=== PATIENT | female | born 1960 | race Caucasian/White ===

== ENCOUNTER 2016-11-04 12:40 | Emergency (ER) | payer OTHER ==
--- NOTE | 2016-11-04 13:45 | ED CLINICAL REPORT ---
Clinical Report - Physicians/Mid Levels [facility] [address] [place] [address] 11/04/2016 12:42 Patient: TED LEE Time Seen: 13:12; initial patient contact, initial documentation, patient care assumed. Arrived- By private vehicle. Historian- patient. HISTORY OF PRESENT ILLNESS Chief Complaint: ABDOMINAL PAIN. At its maximum, severity described as moderate. When seen in the E.D., it was gone. Modifying factors- worsened by food. Not relieved by anything. It is described as "pain" and it is described as located in the epigastric area and in the upper abdomen. This started last night. The patient has had nausea (- gone now). No loss of appetite, vomiting or diarrhea. (says she went to night buffet, ate too much, and then belly started hurting, gone now and feels normal). No recent travel. Similar symptoms previously: None. Recent medical care: Not recently seen/assessed. REVIEW OF SYSTEMS No constipation, black stools, hematemesis, difficulty with urination or pain with urination. No urinary frequency, bloody stools or fever. All systems otherwise negative, except as recorded above. PAST HISTORY See nurses notes. PROBLEMS: Gastritis. Breast Cancer. Mental Illness. Athlete's Foot. Skin Rash. Abdominal Pain. Costochondritis. Immunizations. LNMP - Last Normal Menstrual Period. Diabetes Mellitus. Dyslexia. Hypertension. --12:53 Linda Frias RLuis Carlos. ADDITIONAL SURGERIES: Mastectomy. --12:53 Linda Frias RLuis Carlos. SOCIAL HISTORY Never smoker. No alcohol use or drug use. No recent travel. Is a local resident. FAMILY HISTORY Negative. Cancer in first-degree relative (mother). ADDITIONAL NOTES The nursing notes have been reviewed with agreement regarding the chief complaint, HPI, ROS, PMH and patient medications and allergies. PHYSICAL EXAM Vital Signs: 11/04/2016 12:51 BP: 164/100. HR: 89. RR: 18. O2 saturation: 100%. Temp: 98.1 F. Have been reviewed as abnormal and appear to be correct. Hypertensive. Heart rate normal. Respiratory rate normal. Temperature normal. Oxygen saturation normal. Appearance: Alert. Oriented X3. No acute distress. Eyes: Pupils equal, round and reactive to light. Eyes normal inspection. Neck: Normal inspection. Neck supple. CVS: Normal heart rate and rhythm. Heart sounds normal. Pulses normal. Respiratory: No respiratory distress. Breath sounds normal. Chest nontender. Abdomen: Soft and nontender. Bowel sounds normal. No organomegaly. No mass. Back: Normal inspection. Skin: Skin warm and dry. Normal skin color. No rash. Normal skin turgor. Extremities: Extremities exhibit normal ROM. No lower extremity edema. Neuro: Oriented X 3. No motor deficit. No sensory deficit. PROGRESS AND PROCEDURES Course of Care: tx options discussed, pt does not want any blood work or tests done, since the pain is now gone, but would like rx stomach med. Patient counseled in person regarding the patient's stable condition and diagnosis. 13:45. Differential Diagnosis: I considered gastritis, gastroenteritis, peptic ulcer disease, gastroesophageal reflux disease, acute appendicitis, diverticulitis, colon cancer, Crohn's disease, obstipation, biliary colic, cholecystitis, cholelithiasis, hepatitis, pancreatitis and viral syndrome as a possible cause of abdominal pain in this patient. This is a partial list of diagnoses considered. Above considerations are based on history and physical exam. Differential diagnosis was discussed with patient. Disposition: Discharged home in good and improved condition (13:45). Condition: good and stable. CLINICAL IMPRESSION Acute epigastric abdominal pain of undetermined cause. INSTRUCTIONS Warnings: GENERAL WARNINGS: Return or contact your physician immediately if your condition worsens or changes unexpectedly, if not improving as expected, or if other problems arise. SPECIFICALLY, return if you develop pain in the abdomen or pelvis, fever, the inability to keep fluids down, blood in vomitus, blood in diarrhea, fainting or lightheadedness. Prescription Medications: Pepcid 20 mg tablets: Take 1 orally every 12 hours. Dispense thirty (30). No refills. Substitution is permissible. Bentyl 20 mg tablets: take 1 orally every 6 hours as needed. Dispense thirty (30). No refills. Substitution is permissible. Follow-up: Follow up with your doctor in about three days as needed. Call for an appointment. Summary of care provided to patient. Screening today revealed the patient's blood pressure to be in the hypertensive range. The patient should follow up with a primary care provider for blood pressure management. Understanding of the discharge instructions verbalized by patient. (Electronically signed by Lori Boogie A.R.N.P. 11/04/2016 14:32)
--- NOTE | 2016-11-04 13:45 | ED NURSING NOTES ---
Clinical Report - Nurses [facility] [address] [place] [address] 11/04/2016 12:42 Patient: TED LEE TRIAGE Triage time 12:52 Nov 04 2016. Acuity: LEVEL 3. Chief Complaint: ABDOMINAL PAIN. COLIN COMA SCORE: Colin Coma Scale: 15- eyes open spontaneously (4); best verbal response- oriented x 4 (5); best motor response- obeys commands (6). --12:58 Linda Frias R.N. 12:51 11/04/16. BP: 164/100. HR: 89. RR: 18. O2 saturation: 100%. Temp: 98.1 F. Pain level now 3/10. --12:58 Linda Frias R.N. Weight: 63.5 kg stated. Height/Length: 65 inches Per Patient. BMI: 23.3. --12:56 Linda Frias R.N. Medications MetFORMIN HCl Oral. --12:52 Linda Frias R.N. Allergies None. --12:53 Linda Frias R.N. History Historian: patient. Arrived (taxi). Primary physician (). This started last night. She has had mild nausea and abdominal pain. The pain is described as located in the upper abdomen. No vomiting, diarrhea, constipation or fever. Last oral intake by patient was (12:54 Nov 04 2016). 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 PAST MEDICAL HX: No history of diabetes mellitus. No history of gastroesophageal reflux disease, peptic ulcer disease or gallstones. Immunizations: up-to-date. Last normal menstrual period- 4 years ago. SOCIAL HX: Smoker- current status unknown. No alcohol use or drug use. No recent travel. She has had contact with a sick family member. No infectious disease exposure. ABUSE ASSESSMENT: Abuse assessment: (yes) The patient was asked "Do you feel safe in your home?". No report of abuse. SELF HARM ASSESSMENT: A self harm assessment was performed. The patient answered "no" to the question "Have you recently felt down, depressed, or hopeless?" and "Do you have thoughts of harming or killing yourself?". FALL RISK ASSESSMENT: Fall risk assessment completed. No fall risk identified. NUTRITIONAL RISK ASSESSMENT: The nutritional risk assessment revealed no deficiencies. FUNCTIONAL ASSESSMENT: Functional assessment: no impairments noted. LEARNING NEEDS ASSESSMENT: The learning needs assessment revealed no barriers. SKIN INTEGRITY ASSESSMENT: Skin integrity risk assessment completed. No skin integrity risk identified. --12:58 Linda Frias R.N. PROBLEMS: Gastritis. Breast Cancer. Mental Illness. Athlete's Foot. Skin Rash. Abdominal Pain. Costochondritis. Immunizations. LNMP - Last Normal Menstrual Period. Diabetes Mellitus. Dyslexia. Hypertension. --12:53 Linda Frias R.N. ADDITIONAL SURGERIES: Mastectomy. --12:53 Linda Frias R.N. Interventions ID band on patient. --12:58 Linda Frias R.N. PHYSICAL ASSESSMENT Ambulatory to room. GENERAL / NEURO / PSYCH: Alert. Oriented X 4. Appears anxious. HEENT: Mucous membranes are pink. RESPIRATORY: Respirations not labored. Breath sounds within normal limits. CVS: Normal sinus rhythm noted. Capillary refill less than 2 seconds. GI / : Abdomen soft. Abdominal tenderness in the upper abdomen. Bowel sounds within normal limits. Normal genitalia. Stool color normal. Stool heme negative. (POC test reference range: negative). SKIN: Skin is warm and dry. --12:59 Linda Frias R.N. NURSING PROGRESS NOTES The initial plan of care for this patient includes an assessment with efforts to address the patient's anxiety; appropriate ambient lighting; impairment of the gastrointestinal system. Pulse oximeter and NIBP monitor placed on patient. Head of bed elevated (45). Reassurance given. Call light placed in reach. Side rails up x 1. Bed placed in lowest position. Brakes of bed on. --12:59 Linda Frias R.N. DISPOSITION / DISCHARGE Departure time: 1354. No learning barriers present. Reviewed medication(s) information. Prescription(s) given to the patient. Reviewed referral to family practice for followup. Verbalized understanding. Written instructions provided. The patient was discharged home. She left the Emergency Department ambulatory. --14:51 Yudith Hart R.N. 13:54 11/04/16. HR: 98. RR: 18. O2 saturation: 99%. Pain level now: 0/10. Additional comments: Pt refused BP, states it hurts too much. --14:51 Yudith Hart R.N. Locked/Released at 11/04/2016 14:52 by Yudith Hart R.N.
--- NOTE | 2016-11-04 13:45 | ED NURSING NOTES ---
Clinical Report - Nurses [facility] [address] [place] [address] 11/04/2016 12:42 Patient: TED LEE TRIAGE Triage time 12:52 Nov 04 2016. Acuity: LEVEL 3. Chief Complaint: ABDOMINAL PAIN. COLIN COMA SCORE: Colin Coma Scale: 15- eyes open spontaneously (4); best verbal response- oriented x 4 (5); best motor response- obeys commands (6). --12:58 Linda Frias R.N. 12:51 11/04/16. BP: 164/100. HR: 89. RR: 18. O2 saturation: 100%. Temp: 98.1 F. Pain level now 3/10. --12:58 Linda Frias R.N. Weight: 63.5 kg stated. Height/Length: 65 inches Per Patient. BMI: 23.3. --12:56 Linda Frias R.N. Medications MetFORMIN HCl Oral. --12:52 Linda Frias R.N. Allergies None. --12:53 Linda Frias R.N. History Historian: patient. Arrived (taxi). Primary physician (). This started last night. She has had mild nausea and abdominal pain. The pain is described as located in the upper abdomen. No vomiting, diarrhea, constipation or fever. Last oral intake by patient was (12:54 Nov 04 2016). 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 PAST MEDICAL HX: No history of diabetes mellitus. No history of gastroesophageal reflux disease, peptic ulcer disease or gallstones. Immunizations: up-to-date. Last normal menstrual period- 4 years ago. SOCIAL HX: Smoker- current status unknown. No alcohol use or drug use. No recent travel. She has had contact with a sick family member. No infectious disease exposure. ABUSE ASSESSMENT: Abuse assessment: (yes) The patient was asked "Do you feel safe in your home?". No report of abuse. SELF HARM ASSESSMENT: A self harm assessment was performed. The patient answered "no" to the question "Have you recently felt down, depressed, or hopeless?" and "Do you have thoughts of harming or killing yourself?". FALL RISK ASSESSMENT: Fall risk assessment completed. No fall risk identified. NUTRITIONAL RISK ASSESSMENT: The nutritional risk assessment revealed no deficiencies. FUNCTIONAL ASSESSMENT: Functional assessment: no impairments noted. LEARNING NEEDS ASSESSMENT: The learning needs assessment revealed no barriers. SKIN INTEGRITY ASSESSMENT: Skin integrity risk assessment completed. No skin integrity risk identified. --12:58 Linda Frias R.N. PROBLEMS: Gastritis. Breast Cancer. Mental Illness. Athlete's Foot. Skin Rash. Abdominal Pain. Costochondritis. Immunizations. LNMP - Last Normal Menstrual Period. Diabetes Mellitus. Dyslexia. Hypertension. --12:53 Linda Frias R.N. ADDITIONAL SURGERIES: Mastectomy. --12:53 Linda Frias R.N. Interventions ID band on patient. --12:58 Linda Frias R.N. PHYSICAL ASSESSMENT Ambulatory to room. GENERAL / NEURO / PSYCH: Alert. Oriented X 4. Appears anxious. HEENT: Mucous membranes are pink. RESPIRATORY: Respirations not labored. Breath sounds within normal limits. CVS: Normal sinus rhythm noted. Capillary refill less than 2 seconds. GI / : Abdomen soft. Abdominal tenderness in the upper abdomen. Bowel sounds within normal limits. Normal genitalia. Stool color normal. Stool heme negative. (POC test reference range: negative). SKIN: Skin is warm and dry. --12:59 Linda Frias R.N. NURSING PROGRESS NOTES The initial plan of care for this patient includes an assessment with efforts to address the patient's anxiety; appropriate ambient lighting; impairment of the gastrointestinal system. Pulse oximeter and NIBP monitor placed on patient. Head of bed elevated (45). Reassurance given. Call light placed in reach. Side rails up x 1. Bed placed in lowest position. Brakes of bed on. --12:59 Linda Frias R.N. DISPOSITION / DISCHARGE Departure time: 1354. No learning barriers present. Reviewed medication(s) information. Prescription(s) given to the patient. Reviewed referral to family practice for followup. Verbalized understanding. Written instructions provided. The patient was discharged home. She left the Emergency Department ambulatory. --14:51 Yudith Hart R.N. 13:54 11/04/16. HR: 98. RR: 18. O2 saturation: 99%. Pain level now: 0/10. Additional comments: Pt refused BP, states it hurts too much. --14:51 Yudith Hart R.N. Locked/Released at 11/04/2016 14:52 by Yudith Hart R.N.
--- NOTE | 2016-11-04 14:52 | ED MAR SUMMARY ---
..... Medication Administration Record [facility] [address] [place], [place] [id number] Patient: TED LEE Visit ID: [id number] 56y, F Weight: 63.5 kg Height/Length: 65 in BMI: 23.3 ALLERGIES: None
--- NOTE | 2016-11-04 14:52 | ED MED RECONCILIATION SUMMARY ---
Patient: TED LEE Medication Reconciliation Report [facility] VisitID: [id number] [address] [place] [address] 56y, F Registration Date/Time: 11/04/2016 Weight: 63.5 kg Height/Length: 65 in. BMI: 23.3 ALLERGIES: None The patient's Home Medications are listed below: THE FOLLOWING MEDICATIONS NEED TO BE RECONCILED: MetFORMIN HCl Oral The source(s) of the original Home Medication information: Not obtained. The following Medications were given to the patient in the Emergency Department: None. The following Medications were prescribed to the patient: Pepcid 20 mg tablets: Take 1 orally every 12 hours. Dispense thirty (30). No refills. Substitution is permissible. -- Lori Boogie A.RGerryN.P. Bentyl 20 mg tablets: take 1 orally every 6 hours as needed. Dispense thirty (30). No refills. Substitution is permissible. -- Lori Boogie A.R.N.P.
--- NOTE | 2016-11-04 14:52 | ED MAR SUMMARY ---
..... Medication Administration Record [facility] [address] [place], [place] [id number] Patient: TED LEE Visit ID: [id number] 56y, F Weight: 63.5 kg Height/Length: 65 in BMI: 23.3 ALLERGIES: None
--- NOTE | 2016-11-04 14:52 | ED MED RECONCILIATION SUMMARY ---
Patient: TED LEE Medication Reconciliation Report [facility] VisitID: [id number] [address] [place] [address] 56y, F Registration Date/Time: 11/04/2016 Weight: 63.5 kg Height/Length: 65 in. BMI: 23.3 ALLERGIES: None The patient's Home Medications are listed below: THE FOLLOWING MEDICATIONS NEED TO BE RECONCILED: MetFORMIN HCl Oral The source(s) of the original Home Medication information: Not obtained. The following Medications were given to the patient in the Emergency Department: None. The following Medications were prescribed to the patient: Pepcid 20 mg tablets: Take 1 orally every 12 hours. Dispense thirty (30). No refills. Substitution is permissible. -- Lori Boogie A.RGerryN.P. Bentyl 20 mg tablets: take 1 orally every 6 hours as needed. Dispense thirty (30). No refills. Substitution is permissible. -- Lori Boogie A.R.N.P.
--- NOTE | 2016-11-04 14:52 | ED DISCHARGE INSTRUCTIONS ---
Patient: TED LEE General Instructions [facility] VisitID: [id number] [place] [address] 56y, F Registration Date/Time: 11/04/2016 Acute epigastric abdominal pain of undetermined cause. INSTRUCTIONS Warnings: GENERAL WARNINGS: Return or contact your physician immediately if your condition worsens or changes unexpectedly, if not improving as expected, or if other problems arise. SPECIFICALLY, return if you develop pain in the abdomen or pelvis, fever, the inability to keep fluids down, blood in vomitus, blood in diarrhea, fainting or lightheadedness. Prescription Medications: Pepcid 20 mg tablets: Take 1 orally every 12 hours. Dispense thirty (30). No refills. Substitution is permissible. Bentyl 20 mg tablets: take 1 orally every 6 hours as needed. Dispense thirty (30). No refills. Substitution is permissible. Follow-up: Follow up with your doctor in about three days as needed. Call for an appointment. Summary of care provided to patient. Screening today revealed the patient's blood pressure to be in the hypertensive range. The patient should follow up with a primary care provider for blood pressure management. Understanding of the discharge instructions verbalized by patient. ADDITIONAL INFORMATION Abdominal Pain, Unknown Cause (Female) The exact cause of your abdominal (stomach) pain is not certain. This does not mean that this is something to worry about, or the right tests were not done. Everyone likes to know the exact cause of the problem, but sometimes with abdominal pain, there is no clear-cut cause, and this could be a good thing. The good news is that your symptoms can be treated, and you will feel better. Your condition does not seem serious now; however, sometimes the signs of a serious problem may take more time to appear. For this reason,it is important for you to watch for any new symptoms, problems,or worsening of your condition. Over the next few days, the abdominal pain may come and go, or be continuous. Other common symptoms can include nausea and vomiting. Sometimes it can be difficult to tell if you feel nauseous, you may just feel bad and not associate that feeling with nausea. Constipation, diarrhea, and a fever may go along with the pain. The pain may continue even if treated correctly over the following days. Depending on how things go, sometimes the cause can become clear and may require further or different treatment. Additional evaluations, medications, or tests may be needed. Home care Your health care provider may prescribe medications for pain, symptoms, or an infection. Follow the health care provider's instructions for taking these medications. General care Rest until your next exam. No strenuous activities. Try to find positions that ease discomfort. A small pillow placed on the abdomen may help relieve pain. Something warm on your abdomen (such as a heating pad) may help, but be careful not to burn yourself. Diet Do not force yourself to eat, especially if having cramps, vomiting, or diarrhea. Water is important so you do not get dehydrated. Soup may also be good. Sports drinks may also help, especially if they are not too acidic. Make sure you don't drink sugary drinks as this can make things worse. Take liquids in small amounts. Do not guzzle them. Caffeine sometimes makes the pain and cramping worse. Avoid dairy products if you have vomiting or diarrhea. Don't eat large amounts at a time. Wait a few minutes between bites. Eat a diet low in fiber (called a low-residue diet). Foods allowed include refined breads, white rice, fruit and vegetable juices without pulp, tender meats. These foods will pass more easily through the intestine. Avoid whole-grain foods, whole fruits and vegetables, meats, seeds and nuts, fried or fatty foods, dairy, alcohol and spicy foods until your symptoms go away. Follow-up care Follow up with your health care provider as instructed, or if your pain does not begin to improve in the next 24 hours. When to seek medical care Seek prompt medical care if any of the following occur: Pain gets worse or moves to the right lower abdomen New or worsening vomiting or diarrhea Swelling of the abdomen Unable to pass stool for more than three days Fever of 100.4F (38C) or higher, or as directed by your healthcare provider. Blood in vomit or bowel movements (dark red or black color) Jaundice (yellow color of eyes and skin) Weakness, dizziness Chest, arm, back, neck or jaw pain Unexpected vaginal bleeding or missed period Call 911 Call emergency services if any of the following occur: Trouble breathing Confusion Fainting or loss of consciousness Rapid heart rate Seizure Famotidine Oral tablet What is this medicine? FAMOTIDINE (sherron black) is a type of antihistamine that blocks the release of stomach acid. It is used to treat stomach or intestinal ulcers. It can also relieve heartburn from acid reflux. How should I use this medicine? Take this medicine by mouth with a glass of water. Follow the directions on the prescription label. If you only take this medicine once a day, take it at bedtime. Take your doses at regular intervals. Do not take your medicine more often than directed. Talk to your i&c tech regarding the use of this medicine in children. Special care may be needed. What side effects may I notice from receiving this medicine? Side effects that you should report to your doctor or health professional healthcare representative as soon as possible: agitation, nervousness confusion hallucinations skin rash, itching Side effects that usually do not require medical attention (report to your doctor or health professional healthcare representative if they continue or are bothersome): constipation diarrhea dizziness headache What may interact with this medicine? delavirdine itraconazole ketoconazole What if I miss a dose? If you miss a dose, take it as soon as you can. If it is almost time for your next dose, take only that dose. Do not take double or extra doses. Where should I keep my medicine? Keep out of the reach of children. Store at room temperature between 15 and 30 degrees C (59 and 86 degrees F). Do not freeze. Throw away any unused medicine after the expiration date. What should I tell my health care provider before I take this medicine? They need to know if you have any of these conditions: kidney or liver disease trouble swallowing an unusual or allergic reaction to famotidine, other medicines, foods, dyes, or preservatives or trying to get breast-feeding What should I watch for while using this medicine? Tell your doctor or health professional healthcare representative if your condition does not start to get better or if it gets worse. Finish the full course of tablets prescribed, even if you feel better. Do not take with aspirin, ibuprofen or other antiinflammatory medicines. These can make your condition worse. Do not smoke cigarettes or drink alcohol. These cause irritation in your stomach and can increase the time it will take for ulcers to heal. If you get black, tarry stools or vomit up what looks like coffee grounds, call your doctor or health professional healthcare representative at once. You may have a bleeding ulcer. Dicyclomine Hydrochloride Oral tablet What is this medicine? DICYCLOMINE (dye WANDYE nichol perez) is used to treat bowel problems including irritable bowel syndrome. How should I use this medicine? Take this medicine by mouth with a glass of water. Follow the directions on the prescription label. It is best to take this medicine on an empty stomach, 30 minutes to 1 hour before meals. Take your medicine at regular intervals. Do not take your medicine more often than directed. Talk to your i&c tech regarding the use of this medicine in children. Special care may be needed. While this drug may be prescribed for children as young as 6 months of age for selected conditions, precautions do apply. Patients over 65 years old may have a stronger reaction and need a smaller dose. What side effects may I notice from receiving this medicine? Side effects that you should report to your doctor or health professional healthcare representative as soon as possible: agitation, nervousness, confusion difficulty swallowing dizziness, drowsiness fast or slow heartbeat hallucinations pain or difficulty passing urine Side effects that usually do not require medical attention (report to your doctor or health professional healthcare representative if they continue or are bothersome): constipation headache nausea or vomiting sexual difficulty What may interact with this medicine? amantadine antacids benztropine digoxin disopyramide medicines for allergies, colds and breathing difficulties medicines for alzheimer's disease medicines for anxiety or sleeping problems medicines for depression or psychotic disturbances medicines for diarrhea medicines for pain metoclopramide tegaserod What if I miss a dose? If you miss a dose, take it as soon as you can. If it is almost time for your next dose, take only that dose. Do not take double or extra doses. Where should I keep my medicine? Keep out of the reach of children. Store at room temperature below 30 degrees C (86 degrees F). Protect from light. Throw away any unused medicine after the expiration date. What should I tell my health care provider before I take this medicine? They need to know if you have any of these conditions: difficulty passing urine esophagus problems or heartburn glaucoma heart disease, or previous heart attack myasthenia gravis prostate trouble stomach infection, or obstruction ulcerative colitis an unusual or allergic reaction to dicyclomine, other medicines, foods, dyes, or preservatives or trying to get breast-feeding What should I watch for while using this medicine? You may get drowsy, dizzy, or have blurred vision. Do not drive, use machinery, or do anything that needs mental alertness until you know how this medicine affects you. To reduce the risk of dizzy or fainting spells, do not sit or stand up quickly, especially if you are an older patient. Alcohol can make you more drowsy, avoid alcoholic drinks. Stay out of bright light and wear sunglasses if this medicine makes your eyes more sensitive to light. Avoid extreme heat (hot tubs, saunas). This medicine can cause you to sweat less than normal. Your body temperature could increase to dangerous levels, which may lead to heat stroke. Antacids can stop this medicine from working. If you get an upset stomach and want to take an antacid, make sure there is an interval of at least 1 to 2 hours before or after you take this medicine. Your mouth may get dry. Chewing sugarless gum or sucking hard candy, and drinking plenty of water may help. Contact your doctor if the problem does not go away or is severe. You have been given the following additional information: Abdominal Pain, Unknown Cause, (Female) Famotidine Oral tablet Dicyclomine Hydrochloride Oral tablet (Electronically signed by Lori Boogie A.R.N.P. 11/04/2016 14:32)
== END 2016-11-04 13:54 | disposition home or self-care (01) ==
LOC: ED SRH 12:40
DX: R10.13 Epigastric pain (principal); E11.9 Type 2 diabetes mellitus without complications; I10 Essential (primary) hypertension; Z79.84 Long term (current) use of oral hypoglycemic drugs

== ENCOUNTER 2016-11-07 11:32 | Emergency (ER) | payer OTHER ==
--- NOTE | 2016-11-07 13:16 | ED CLINICAL REPORT ---
Clinical Report - Physicians/Mid Levels [facility] [address] [place] [address] 11/07/2016 11:32 Patient: TED LEE Time Seen: 13:38 Nov 07 2016. Arrived- By private vehicle. Historian- patient. HISTORY OF PRESENT ILLNESS Chief Complaint: EARACHE. 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 Location- left ear. The pain is described as mild. The patient has had ear pain. No complaint of foreign body in the ear, ear trauma, sore throat or toothache. (Over the last 5-6 months, patient reports left ear pain, external to the ear itself, rather the skin. In addition she reports right foot pain Denies any injury. Reports pain of the foot is worse with movement or activity, denies trauma/ injury . She has not seen her primary care provider. She reports placing some lotion to the left ear aspect, without relief, denies any history of psoriasis or eczema. Denies any fevers or chills.). REVIEW OF SYSTEMS No fever, chills, cough, difficulty breathing or nausea. No vomiting or diarrhea. Has not had decreased oral intake. All systems otherwise negative, except as recorded above. ADDITIONAL NOTES The nursing notes have been reviewed. PHYSICAL EXAM Vital Signs: 11/07/2016 12:23 BP: 154/94. HR: 101. RR: 14. O2 saturation: 100%. Temp: 97.5 F. Appearance: Alert. No acute distress. No apparent distress. Does not appear to be anxious. Throat: Pharynx normal. No pharyngeal erythema or mouth ulcerations. Ear (left): No erythema of the tympanic membrane or dullness of the tympanic membrane. Left tympanic membrane normal. Ear (right): No erythema of the tympanic membrane or dullness of the tympanic membrane. Right tympanic membrane normal. Nose: Nose normal. No nasal discharge. Neck: Normal inspection. CVS: Normal heart rate and rhythm. Heart sounds normal. Respiratory: No respiratory distress. Breath sounds normal. Back: Normal inspection. No CVA tenderness. Skin: Skin warm. (external to ear overlying mastoid dry skin, with mild erythema, no warmth/ swelling). PROGRESS AND PROCEDURES Course of Care: Eczema versus psoriasis of the left external ear, with no overlying secondary signs of infection, no mastoid tenderness, no signs of otitis externa or media. Patient additional with a non-injured foot pain, over the plantar surface of her mid foot, with no overlying rash. No overlying signs of infectious processes. Pain worsens with ambulation, questionable if patient has signs of early plantar fasciitis. Patient is referred to her primary care provider for further management. Patient is stable. Physical exam findings are improved. Symptoms better. Patient/family counseled. Disposition: Discharged. CLINICAL IMPRESSION Atopic dermatitis. Sprain of the right foot. INSTRUCTIONS Drink plenty of fluids. (follow up with your dr). Prescription Medications: Motrin 800 mg tablets: take 1 tablet orally every 8 hours for 5 days. Dispense twenty (20). No refill. Substitution is permissible. Hydrocortisone 0.5% cream: apply to affected areas three times daily for 1 week, as needed for itching, until symptoms improve. Dispense thirty (30) grams. Substitution is permissible. Follow-up: Follow up with doctor in four days. (Electronically signed by Jena Oleary P.A.-C 11/07/2016 15:05)
--- NOTE | 2016-11-07 13:16 | ED NURSING NOTES ---
Clinical Report - Nurses [facility] [address] [place] [address] 11/07/2016 11:32 Patient: TED LEE TRIAGE Triage time 12:20. Acuity: LEVEL 4. Chief Complaint: LEFT EAR PAIN. 12:11/07/16. 12:11/07/16. Alert. No acute distress. ( Left ear pain. She describes this pain as external pain and not internal pain. She states she has dry skin and no ear ache). --12:25 Benjamin Viera R.N. 12:11/07/16. BP: 154/94. HR: 101. RR: 14. O2 saturation: 100% on room air. Temp: 97.5 F (oral). --12:25 Benjamin Viera R.N. Acuity: LEVEL 5. --12:25 Benjamin Viera R.N. Weight: 68 kg stated. Height/Length: 65 inches Per Patient. BMI: 25. --12:20 Benjamin Viera R.N. Medications None. --12:21 Benjamin Viera R.N. Medication/allergy information source: the patient. --12:25 Benjamin Viera R.N. Allergies None. --12:21 Benjamin Viera R.N. History Arrived by private vehicle. Historian: patient. Primary physician (Kang Xiao). 12:11/07/16. ( 1 year). 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 PAST MEDICAL HX: Immunizations not up to date. SOCIAL HX: Never smoker. No alcohol use or drug use. No infectious disease exposure. ABUSE ASSESSMENT: No report of abuse. FALL RISK ASSESSMENT: Fall risk assessment completed. No fall risk identified. NUTRITIONAL RISK ASSESSMENT: The nutritional risk assessment revealed no deficiencies. FUNCTIONAL ASSESSMENT: Functional assessment: no impairments noted. LEARNING NEEDS ASSESSMENT: The learning needs assessment revealed no barriers. SKIN INTEGRITY ASSESSMENT: Skin integrity risk assessment completed. No skin integrity risk identified. --12:25 Benjamin Viera R.N. PROBLEMS: Sick Contact. Gastritis. Breast Cancer. Mental Illness. Athlete's Foot. Skin Rash. Abdominal Pain. Costochondritis. Immunizations. Diabetes Mellitus. Dyslexia. --12: Benjamin Viera R.N. ADDITIONAL SURGERIES: Mastectomy. --12: Benjamin Viera R.N. Assessment 12:11/07/16. --12:25 Benjamin Viera R.N. Interventions 12:11/07/16. 12:11/07/16. ID and allergy band on patient. To treatment room. --12: Benjamin Viera R.N. PHYSICAL ASSESSMENT 12:11/07/16. Ambulatory to room. GENERAL / NEURO / PSYCH: Alert. Appears in no acute distress. CVS: Capillary refill less than 2 seconds. SKIN: Skin is warm and dry. --12: Benjamin Viera R.N. NURSING PROGRESS NOTES 12:11/07/16. Reassurance given. Two patient identifiers checked. Call light placed in reach. Side rails up x 2. Bed placed in lowest position. Brakes of bed on. Brakes of chair on. --12: Benjamin Viera R.N. 12:11/07/16. Patient ready for evaluation- chart flagged and notification provided. --12: Benjamin Viera R.N. DISPOSITION / DISCHARGE 13:11/07/16. Condition at departure: improved. The goals identified in the patient's plan of care were met. No learning barriers present. Discharge instructions provided and reviewed with the patient. Reviewed warnings. Reviewed medication(s). Treatments reviewed. Patient verbalized understanding. Written instructions provided in Icelandic. The patient was discharged by the physician assistant boiler operator. She was discharged home and accompanied by family. She left the Emergency Department ambulatory and via private vehicle. Patient driving. FALL RISK ASSESSMENT: Fall risk assessment completed. No fall risk identified. --13:19 Benjamin Viera R.N. 13:11/07/16. BP: 144/88. HR: 72. RR: 14. O2 saturation: 100% on room air. --13:19 Benjamin Viera R.N. 13:19 01/30/17. Departure time: 13:19. --13:19 Benjamin Viera R.N. Locked/Released at 11/07/2016 13:54 by Benjamin Viera R.N.
--- NOTE | 2016-11-07 13:16 | ED NURSING NOTES ---
Clinical Report - Nurses [facility] [address] [place] [address] 11/07/2016 11:32 Patient: TED LEE TRIAGE Triage time 12:20. Acuity: LEVEL 4. Chief Complaint: LEFT EAR PAIN. 12:11/07/16. 12:11/07/16. Alert. No acute distress. ( Left ear pain. She describes this pain as external pain and not internal pain. She states she has dry skin and no ear ache). --12:25 Benjamin Viera R.N. 12:11/07/16. BP: 154/94. HR: 101. RR: 14. O2 saturation: 100% on room air. Temp: 97.5 F (oral). --12:25 Benjamin Viera R.N. Acuity: LEVEL 5. --12:25 Benjamin Viera R.N. Weight: 68 kg stated. Height/Length: 65 inches Per Patient. BMI: 25. --12:20 Benjamin Viera R.N. Medications None. --12:21 Benjamin Viera R.N. Medication/allergy information source: the patient. --12:25 Benjamin Viera R.N. Allergies None. --12:21 Benjamin Viera R.N. History Arrived by private vehicle. Historian: patient. Primary physician (Kang Xiao). 12:11/07/16. ( 1 year). 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 PAST MEDICAL HX: Immunizations not up to date. SOCIAL HX: Never smoker. No alcohol use or drug use. No infectious disease exposure. ABUSE ASSESSMENT: No report of abuse. FALL RISK ASSESSMENT: Fall risk assessment completed. No fall risk identified. NUTRITIONAL RISK ASSESSMENT: The nutritional risk assessment revealed no deficiencies. FUNCTIONAL ASSESSMENT: Functional assessment: no impairments noted. LEARNING NEEDS ASSESSMENT: The learning needs assessment revealed no barriers. SKIN INTEGRITY ASSESSMENT: Skin integrity risk assessment completed. No skin integrity risk identified. --12:25 Benjamin Viera R.N. PROBLEMS: Sick Contact. Gastritis. Breast Cancer. Mental Illness. Athlete's Foot. Skin Rash. Abdominal Pain. Costochondritis. Immunizations. Diabetes Mellitus. Dyslexia. --12: Benjamin Viera R.N. ADDITIONAL SURGERIES: Mastectomy. --12: Benjamin Viera R.N. Assessment 12:11/07/16. --12:25 Benjamin Viera R.N. Interventions 12:11/07/16. 12:11/07/16. ID and allergy band on patient. To treatment room. --12: Benjamin Viera R.N. PHYSICAL ASSESSMENT 12:11/07/16. Ambulatory to room. GENERAL / NEURO / PSYCH: Alert. Appears in no acute distress. CVS: Capillary refill less than 2 seconds. SKIN: Skin is warm and dry. --12: Benjamin Viera R.N. NURSING PROGRESS NOTES 12:11/07/16. Reassurance given. Two patient identifiers checked. Call light placed in reach. Side rails up x 2. Bed placed in lowest position. Brakes of bed on. Brakes of chair on. --12: Benjamin Viera R.N. 12:11/07/16. Patient ready for evaluation- chart flagged and notification provided. --12: Benjamin Viera R.N. DISPOSITION / DISCHARGE 13:11/07/16. Condition at departure: improved. The goals identified in the patient's plan of care were met. No learning barriers present. Discharge instructions provided and reviewed with the patient. Reviewed warnings. Reviewed medication(s). Treatments reviewed. Patient verbalized understanding. Written instructions provided in Estonian. The patient was discharged by the physician conservation assistant. She was discharged home and accompanied by family. She left the Emergency Department ambulatory and via private vehicle. Patient driving. FALL RISK ASSESSMENT: Fall risk assessment completed. No fall risk identified. --13:19 Benjamin Viera R.N. 13:11/07/16. BP: 144/88. HR: 72. RR: 14. O2 saturation: 100% on room air. --13:19 Benjamin Viera R.N. 13:19 01/30/17. Departure time: 13:19. --13:19 Benjamin Viera R.N. Locked/Released at 11/07/2016 13:54 by Benjamin Viera R.N.
--- NOTE | 2016-11-07 13:16 | ED CLINICAL REPORT ---
Clinical Report - Physicians/Mid Levels [facility] [address] [place] [address] 11/07/2016 11:32 Patient: TED LEE Time Seen: 13:38 Nov 07 2016. Arrived- By private vehicle. Historian- patient. HISTORY OF PRESENT ILLNESS Chief Complaint: EARACHE. 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 Location- left ear. The pain is described as mild. The patient has had ear pain. No complaint of foreign body in the ear, ear trauma, sore throat or toothache. (Over the last 5-6 months, patient reports left ear pain, external to the ear itself, rather the skin. In addition she reports right foot pain Denies any injury. Reports pain of the foot is worse with movement or activity, denies trauma/ injury . She has not seen her primary care provider. She reports placing some lotion to the left ear aspect, without relief, denies any history of psoriasis or eczema. Denies any fevers or chills.). REVIEW OF SYSTEMS No fever, chills, cough, difficulty breathing or nausea. No vomiting or diarrhea. Has not had decreased oral intake. All systems otherwise negative, except as recorded above. ADDITIONAL NOTES The nursing notes have been reviewed. PHYSICAL EXAM Vital Signs: 11/07/2016 12:23 BP: 154/94. HR: 101. RR: 14. O2 saturation: 100%. Temp: 97.5 F. Appearance: Alert. No acute distress. No apparent distress. Does not appear to be anxious. Throat: Pharynx normal. No pharyngeal erythema or mouth ulcerations. Ear (left): No erythema of the tympanic membrane or dullness of the tympanic membrane. Left tympanic membrane normal. Ear (right): No erythema of the tympanic membrane or dullness of the tympanic membrane. Right tympanic membrane normal. Nose: Nose normal. No nasal discharge. Neck: Normal inspection. CVS: Normal heart rate and rhythm. Heart sounds normal. Respiratory: No respiratory distress. Breath sounds normal. Back: Normal inspection. No CVA tenderness. Skin: Skin warm. (external to ear overlying mastoid dry skin, with mild erythema, no warmth/ swelling). PROGRESS AND PROCEDURES Course of Care: Eczema versus psoriasis of the left external ear, with no overlying secondary signs of infection, no mastoid tenderness, no signs of otitis externa or media. Patient additional with a non-injured foot pain, over the plantar surface of her mid foot, with no overlying rash. No overlying signs of infectious processes. Pain worsens with ambulation, questionable if patient has signs of early plantar fasciitis. Patient is referred to her primary care provider for further management. Patient is stable. Physical exam findings are improved. Symptoms better. Patient/family counseled. Disposition: Discharged. CLINICAL IMPRESSION Atopic dermatitis. Sprain of the right foot. INSTRUCTIONS Drink plenty of fluids. (follow up with your dr). Prescription Medications: Motrin 800 mg tablets: take 1 tablet orally every 8 hours for 5 days. Dispense twenty (20). No refill. Substitution is permissible. Hydrocortisone 0.5% cream: apply to affected areas three times daily for 1 week, as needed for itching, until symptoms improve. Dispense thirty (30) grams. Substitution is permissible. Follow-up: Follow up with doctor in four days. (Electronically signed by Jena Oleary P.A.-C 11/07/2016 15:05)
--- NOTE | 2016-11-07 15:05 | ED MAR SUMMARY ---
..... Medication Administration Record [facility] [address] [place], [place] [id number] Patient: TED LEE Visit ID: [id number] 56y, F Weight: 68.0 kg Height/Length: 65 in BMI: 25 ALLERGIES: None
--- NOTE | 2016-11-07 15:05 | ED MED RECONCILIATION SUMMARY ---
Patient: TED LEE Medication Reconciliation Report [facility] VisitID: [id number] [address] [place] [address] 56y, F Registration Date/Time: 11/07/2016 Weight: 68.0 kg Height/Length: 65 in. BMI: 25.0 ALLERGIES: None The patient's Home Medications are listed below: NONE. The source(s) of the original Home Medication information: patient The following Medications were given to the patient in the Emergency Department: None. The following Medications were prescribed to the patient: Motrin 800 mg tablets: take 1 tablet orally every 8 hours for 5 days. Dispense twenty (20). No refill. Substitution is permissible. -- Jena Oleary, P.A.-C Hydrocortisone 0.5% cream: apply to affected areas three times daily for 1 week, as needed for itching, until symptoms improve. Dispense thirty (30) grams. Substitution is permissible. -- Jena Oleary, P.A.-C
--- NOTE | 2016-11-07 15:05 | ED MAR SUMMARY ---
..... Medication Administration Record [facility] [address] [place], [place] [id number] Patient: TED LEE Visit ID: [id number] 56y, F Weight: 68.0 kg Height/Length: 65 in BMI: 25 ALLERGIES: None
--- NOTE | 2016-11-07 15:05 | ED MED RECONCILIATION SUMMARY ---
Patient: TED LEE Medication Reconciliation Report [facility] VisitID: [id number] [address] [place] [address] 56y, F Registration Date/Time: 11/07/2016 Weight: 68.0 kg Height/Length: 65 in. BMI: 25.0 ALLERGIES: None The patient's Home Medications are listed below: NONE. The source(s) of the original Home Medication information: patient The following Medications were given to the patient in the Emergency Department: None. The following Medications were prescribed to the patient: Motrin 800 mg tablets: take 1 tablet orally every 8 hours for 5 days. Dispense twenty (20). No refill. Substitution is permissible. -- Jena Oleary, P.A.-C Hydrocortisone 0.5% cream: apply to affected areas three times daily for 1 week, as needed for itching, until symptoms improve. Dispense thirty (30) grams. Substitution is permissible. -- Jena Oleary, P.A.-C
--- NOTE | 2016-11-07 15:05 | ED DISCHARGE INSTRUCTIONS ---
Patient: TED LEE General Instructions [facility] VisitID: [id number] [place] [address] 56y, F Registration Date/Time: 11/07/2016 Atopic dermatitis. Sprain of the right foot. INSTRUCTIONS Drink plenty of fluids. (follow up with your dr). Prescription Medications: Motrin 800 mg tablets: take 1 tablet orally every 8 hours for 5 days. Dispense twenty (20). No refill. Substitution is permissible. Hydrocortisone 0.5% cream: apply to affected areas three times daily for 1 week, as needed for itching, until symptoms improve. Dispense thirty (30) grams. Substitution is permissible. Follow-up: Follow up with doctor in four days. ADDITIONAL INFORMATION Atopic Dermatitis (Eczema) Atopic dermatitis is a dry, itchy red rash that comes and goes. It is not contagious. It is most common in persons with asthma, hay fever, hives, or dry sensitive skin. The rash may be triggered by extreme heat or heavy sweating. Skin irritants may cause the rash to flare up, including wool or silk clothing, grease, oils, some medicines, and harsh soaps and detergents. And emotional stress may also be a trigger. Scratching may break the skin and lead to infection. Treatment is aimed at relieving the itching and local inflammation. Home Care: Keep the areas of rash clean by bathing regularly (at least every other day). Use lukewarm water to bathe. Avoid hot water, which can dry out the skin. Avoid soaps with detergents. Use mild, moisturizing soaps such as Dove or Cetaphil. Apply a moisturizing cream or ointment to damp skin right after bathing. Avoid things that irritate your skin. Wear absorbent, soft fabrics next to the skin rather than rough or scratchy materials. Use mild laundry soap free of scents and perfumes. Rinse all the soap out of the clothes before drying. Treat any skin infection as directed. Oral Benadryl (diphenhydramine) is an antihistamine available at drug and grocery stores. Unless a prescription antihistamine was given, Benadryl may be used to reduce itching if large areas of the skin are involved. Use lower doses during the daytime and higher doses at bedtime since the drug may make you sleepy. (NOTE: Do not use Benadryl if you have glaucoma or if you are a man with trouble urinating due to an enlarged prostate.) Claritin (loratadine) is an antihistamine that causes less drowsiness and is an alternative for daytime use. Follow Up: Make an appointment with your doctor in the next week if there is no improvement with the above measures. Get Prompt Medical Attention if any of the following occur: Increasing area of redness or pain in the skin Yellow crusts or wet drainage from the rash Fever of 100.4F (38C) or higher, or as directed by your healthcare provider Sprain, Foot A sprain is a stretching or tearing of the ligaments that hold a joint together. There are no broken bones. Sprains take from 36 weeks to heal. A sprain may be treated with a splint, walking cast or special boot. Mild sprains may not require any additional support. Home care The following guidelines will help you care for your injury at home: Keep your leg elevated when sitting or lying down. This is very important during the first 48 hours to reduce swelling. Stay off the injured foot as much as possible until you can walk on it without pain. If needed, you may use crutches during the first week for this purpose. (Crutches can be rented at many pharmacies or surgical/orthopedic supply stores). You may be given a cast shoe to wear to prevent movement in your foot. If not, you can use a sandal or any shoe that does not put pressure on the injured area until the swelling and pain go away. If using a sandal, be careful not to strike your foot against anything, since another injury could make the sprain worse. Apply an ice pack (ice cubes in a plastic bag, wrapped in a towel) over the injured area for 20 minutes every 12 hours the first day. You should continue with ice packs 34 times a day for the next two days. Continue the use of ice packs for relief of pain and swelling as needed. You may use acetaminophen or ibuprofen to control pain, unless another medicine was prescribed. If you have chronic liver or kidney disease or ever had a stomach ulcer or GI bleeding, talk with your doctor before using these medicines. If you were given a splint or cast, keep it dry. Bathe with your splint/cast well out of the water, protected with a large plastic bag, rubber-banded at the top end. If a fiberglass splint or cast gets wet, you can dry it with a hair-dryer. You may return to sports after healing, when you can run without pain. Follow-up care Follow up with your doctor as directed. Any X-rays you had today dont show any broken bones, breaks, or fractures. Sometimes fractures dont show up on the first X-ray. Bruises and sprains can sometimes hurt as much as a fracture. These injuries can take time to heal completely. If your symptoms dont improve or they get worse, talk with your doctor. You may need a repeat X-ray. When to seek medical care Get prompt medical attention if any of the following occur: The plaster cast or splint gets wet or soft The fiberglass cast or splint gets wet and does not dry for 24 hours Pain or swelling increases, or redness appears Toes become cold, blue, numb, or tingly You have been given the following additional information: Atopic Dermatitis (Eczema) Sprain, Foot (Electronically signed by Jena Oleary P.A.-C 11/07/2016 15:05)
== END 2016-11-07 13:19 | disposition home or self-care (01) ==
LOC: ED SRH 11:32
DX: S93.601A Unspecified sprain of right foot, initial encounter (principal); L20.9 Atopic dermatitis, unspecified; X58.XXXA Exposure to other specified factors, initial encounter; Y93.9 Activity, unspecified; Y92.9 Unspecified place or not applicable; Y99.9 Unspecified external cause status

== ENCOUNTER 2017-01-06 18:11 | Emergency (ER) | payer OTHER ==
--- NOTE | 2017-01-06 19:32 | ED ORDER SUMMARY ---
..... Patient: TED LEE OrderSheet Located [facility] VisitID: [id number] [place] [address] 56y, F Registration Date/Time: 01/06/2017 ORDER SHEET Weight: 72.5 kg (stated) Allergies: None GENERAL ORDERS: Old Records (from [facility]) (18:37 01/06/2017 [facility]) (19:47 TBowen R.N.) POC Breathalyzer (18:38 01/06/2017 [facility]) (Ack 18:51 JSanders R.N.) (18:56 JSanders R.N.) POC - Urine hCG (18:38 01/06/2017 [facility]) (18:51 JSanders R.N.) Urine Drug Screen Urgent (18:38 01/06/2017 [facility]) (18:51 JSanders R.N.) (Ack 18:51 OHernandez) UA-Culture if indicated Urgent (18:38 01/06/2017 [facility]) (18:51 JSanders R.N.) (Ack 18:52 OHernandez) POC Glucose (19:10 01/06/2017 [facility]) (19:28 Daniel ER Layout Artist) Urine Urgent (19:42 01/06/2017 [facility]) (19:47 TBowen R.N.) MEDICATION ORDERS: Bactrim DS PO (Tablet 800-160 mg) 1 tab (NOW) (19:30 01/06/2017 [facility]) (19:46 TBowen R.N.) IV FLUIDS: ORDER SHEET NOTES: [Electronically signed by Sheri Ellis R.N. (20:01 01/06/2017)] [Electronically signed by Hector Reyes DO (20:58 01/06/2017)] [Electronically locked/signed by Sheri Ellis R.N. (20:01 01/06/2017)]
--- NOTE | 2017-01-06 19:32 | ED NURSING NOTES ---
Clinical Report - Nurses [facility] [address] [place] [address] 01/06/2017 18:13 Patient: TED LEE TRIAGE Triage time 18:34 Jan 06 2017. Acuity: LEVEL 5. Chief Complaint: DELUSIONS and BIZARRE BEHAVIOR and (Patient is here today stating, "I think I am disolving, my feet are shrinking" Complains of feet hurting). 18:40 01/06/17. SEPSIS SCREEN: Sepsis Screen. Negative (no infection suspected/documented). COLIN COMA SCORE: Colin Coma Scale: 15- eyes open spontaneously (4); best verbal response- oriented x 4 (5); best motor response- obeys commands (6). --18:40 Hermlia Prince R.N. 18:33 01/06/17. BP: 160/81 (regular adult cuff) taken on the left arm, while lying. HR: 108. RR: 18 (regular). O2 saturation: 98% on room air. Temp: 97.6 F (oral). Pain level now: 0/10. --18:40 Hermila Prince R.N. Weight: 72.5 kg stated. Height/Length: 64 inches Per Patient. BMI: 27.5. --18:36 Hermila Prince R.N. Medications None. --18:35 Hermila Prince R.N. Allergies None. --18:35 Hermila Prince R.N. History Historian: patient. Arrived (taxi). Primary physician (Dr Aragon). Onset. (one year ago). ( Patient shows a skin yeast under right breast, she says its been there for 4 years). No anxiety. Denies feelings of depression, sleeping difficulties or having hallucinations. Has not been confused. Has not been feeling agitated. Treatment TRAINING GENERALIST: None. PAST MEDICAL HX: Hypertension. Psychiatric illness. Last normal menstrual period- 10 years ago. SOCIAL HX: Smoker- current status unknown. No alcohol use or drug use. No infectious disease exposure. ABUSE ASSESSMENT: No report of abuse. --18:40 Hermila Prince R.N. PROBLEMS: Breast Cancer. Mental Illness. Costochondritis. Diabetes Mellitus. Dyslexia. Hypertension. --18:35 Hermila Prince R.N. ADDITIONAL SURGERIES: Mastectomy. --18:35 Hermila Prince R.N. Interventions ID band on patient. To treatment room. --18:40 Hermila Prince R.N. PHYSICAL ASSESSMENT 18:42 01/06/17. Ambulatory to room. Patient gowned. GENERAL / NEURO / PSYCH: Alert. Oriented X 4. Poor eye contact. Affect appears normal. Patient appears calm and cooperative. Behavior appears abnormal, including paranoid behaviors. No apparent auditory hallucinations, visual hallucinations or tactile hallucinations. The patient appears to have altered thought processes ("I think my body is shriking, my feet are getting smaller and smaller and so is my legs"). Denies suicidal thoughts. She not combative. Patient appears well-nourished and unkempt. RESPIRATORY: Respirations not labored. Breath sounds within normal limits. CVS: Capillary refill less than 2 seconds. GI / : Abdomen soft and nontender. Bowel sounds within normal limits. SKIN: Skin is warm. --18:42 Hermila Prince R.N. SKIN: Erythematous skin rash located on the breast(s) (Patient has yeast infection under right breast, odorous and red). --18:50 Hermila Prince R.N. NURSING PROGRESS NOTES 18:43 01/06/17. The plan of care for this patient has been created. Patient gowned. Head of bed elevated. Reassurance given. Two patient identifiers checked. Call light placed in reach. Side rails up x 2. Bed placed in lowest position. Brakes of bed on. Patient ready for evaluation- chart flagged and ED physician notified. --18:43 Hermila Prince R.N. ( Breathalyzer was done and reported 0). --18:59 Hermila Prince R.N. Care transferred and report given (Sheri HARVEY). --19:12 Hermila Prince R.N. Finger stick glucose: 96; ordered; performed by tech; result shown to the RN. --19:28 Orlando Lewis ER Dry Ice Machine Operator 19:46 01/06/2017 Bactrim DS (Sulfamethoxazole-TMP DS) PO 1 tab given. Allergies verified and confirmed 5 rights. --19:46 Mayra Soto DISPOSITION / DISCHARGE Departure time: 20:01. Condition at departure: improved. No learning barriers present. Discharge instructions provided and reviewed with the patient. Reviewed medication(s) side effects, precautions, dosing and course information. Prescription(s) given to the patient. Treatments reviewed. Reviewed referrals. Follow up contact number. Patient verbalized understanding. Written instructions provided in Urdu. No diet instructions, activity restrictions, note given or stop smoking instructions. The patient was discharged by the physician. She was discharged home. She left the Emergency Department ambulatory and via private vehicle. Patient driving. FALL RISK ASSESSMENT: Fall risk assessment completed. No fall risk identified. --20:01 Mayra Soto 19:59 01/06/17. BP: 131/67. HR: 71. RR: 16. O2 saturation: 98%. Temp: deferred. Pain level now: 0/10. --20:01 Mayra Soto Locked/Released at 01/06/2017 20:01 by Mayra Soto
--- NOTE | 2017-01-06 19:32 | ED ORDER SUMMARY ---
..... Patient: TED LEE OrderSheet [facility] VisitID: [id number] [place] [address] 56y, F Registration Date/Time: 01/06/2017 ORDER SHEET Weight: 72.5 kg (stated) Allergies: None GENERAL ORDERS: Old Records (from [facility]) (18:37 01/06/2017 [facility]) (19:47 TBowen R.N.) POC Breathalyzer (18:38 01/06/2017 [facility]) (Ack 18:51 JSanders R.N.) (18:56 JSanders R.N.) POC - Urine hCG (18:38 01/06/2017 [facility]) (18:51 JSanders R.N.) Urine Drug Screen Urgent (18:38 01/06/2017 [facility]) (18:51 JSanders R.N.) (Ack 18:51 OHernandez) UA-Culture if indicated Urgent (18:38 01/06/2017 [facility]) (18:51 JSanders R.N.) (Ack 18:52 OHernandez) POC Glucose (19:10 01/06/2017 [facility]) (19:28 Daniel ER Superintendent [employer]) Urine Urgent (19:42 01/06/2017 [facility]) (19:47 TBowen R.N.) MEDICATION ORDERS: Bactrim DS PO (Tablet 800-160 mg) 1 tab (NOW) (19:30 01/06/2017 [facility]) (19:46 TBowen R.N.) IV FLUIDS: ORDER SHEET NOTES: [Electronically signed by Sheri Ellis R.N. (20:01 01/06/2017)] [Electronically signed by Hector Reyes DO (20:58 01/06/2017)] [Electronically locked/signed by Sheri Ellis R.N. (20:01 01/06/2017)]
--- NOTE | 2017-01-06 19:32 | ED CLINICAL REPORT ---
Clinical Report - Physicians/Mid Levels [facility] [address] [place] [address] 01/06/2017 18:13 Patient: TED LEE Time Seen: 18:36. Arrived- By private vehicle. Historian- patient. HISTORY OF PRESENT ILLNESS Chief Complaint: PAIN IN FEET; RASH UNDER RIGHT BREAST. This started about 1 year ago and is still present. It was gradual in onset and has been waxing/waning. At its maximum, severity described as moderate. When seen in the E.D., severity described as moderate. Modifying factors- worsened by walking. Relieved by rest. (Walking makes feet worse). No headache, fatigue, muscle aches or weakness. Denies sleep problem. Similar symptoms previously: Recent medical care: The patient was seen recently at another facility in the emergency department. REVIEW OF SYSTEMS Last normal menstrual period- 10 years ago. No fever, sore throat, sinus drainage, nasal congestion or difficulty breathing. No chest pain, abdominal pain, nausea, vomiting or diarrhea. No black stools, bloody stools, difficulty with urination, back pain or calf pain. The patient has had skin rash located on the chest (under right breast). She has had difficulty with ambulation (states feet hurt when she walks a long distance). All systems otherwise negative, except as recorded above. PAST HISTORY See nurses notes. Diabetes mellitus. Gastritis. Tinea pedis. Schizophrenia. Dyslexia. History of breast cancer. Surgeries: Left mastectomy (15 years ago). Medications: None. Allergies: None. SOCIAL HISTORY Never smoker. No alcohol use or drug use. ADDITIONAL NOTES The nursing notes have been reviewed. PHYSICAL EXAM Vital Signs: 01/06/2017 18:33 BP: 160/81. HR: 108. RR: 18. O2 saturation: 98%. Temp: 97.6 F. Pain level now: 0/10. Appearance: Alert. Anxious. Patient in mild distress. Eyes: Eyes normal inspection. No scleral icterus or pale conjunctivae. ENT: Pharynx normal. No pharyngeal erythema or tonsillar exudate. The mucous membranes are not dry. Neck: Normal inspection. Neck supple. CVS: Normal heart rate and rhythm. Heart sounds normal. Pulses normal. Respiratory: No respiratory distress. Breath sounds normal. Abdomen: No visible injury. Soft and nontender. Back: Normal inspection. Skin: No cyanosis. Moderate skin rash (yeast / intertrigo rash under right breast with erythema and mild weeping). No pallor or diaphoresis. Neuro: Oriented X 3. No motor deficit. No sensory deficit. LABS, X-RAYS, AND EKG Laboratory Tests: UA-Culture if indicated: (JEMMA: 01/06/2017 18:40) ( [facility] 01/06/2017 19:12) Final results Test Result Flag Units (Reference) URINE COLOR YELLOW URINE APPEARANCE CLEAR URINE GLUCOSE NEGATIVE (NEGATIVE) URINE BILIRUBIN NEGATIVE (NEGATIVE) URINE KETONE NEGATIVE (NEGATIVE) URINE SPECIFIC GRAVITY >= 1.030 (1.010-1.030) URINE PH 6.0 (5.0-8.0) URINE PROTEIN NEGATIVE (NEGATIVE) URINE UROBILINOGEN 0.2 EU/dL (0.2-1.0) URINE NITRITE NEGATIVE (NEGATIVE) URINE BLOOD NEGATIVE (NEGATIVE) URINE LEUK ESTERASE POSITIVE (NEGATIVE) URINE RBC NONE SEEN rbc/hpf (0-1) URINE WBC 5-10 wbc/hpf (0-1) URINE EPITHELIAL CELLS 0-1 EPI/hpf (0-5) URINE BACTERIA FEW (1+) (NONE SEEN) URINE COMMENT CULTURE INDICATED 1+ MUCUSURINE CULTURES ARE SET-UP BASED ON THE FOLLOWING CRITERIA:POSITIVE NITRITEPOSITIVE LEUKOCYTE ESTERASEGREATER THAN 10 WHITE BLOOD CELLSMODERATE (2+) OR GREATER BACTERIA Urine: (JEMMA: 01/06/2017 18:00) ( [facility] 01/06/2017 19:54) Final results Test Result Flag Units (Reference) URINE NEGATIVE Urine Drug Screen: (JEMMA: 01/06/2017 18:40) ( [facility] 01/06/2017 19:15) Final results Test Result Flag Units (Reference) AMPHETAMINE/METHAMPHETAMINE NEGATIVE (NEGATIVE) BARBITURATE NEGATIVE (NEGATIVE) BENZODIAZEPINE NEGATIVE (NEGATIVE) CANNABINOID NEGATIVE (NEGATIVE) COCAINE NEGATIVE (NEGATIVE) ECSTASY NEGATIVE (NEGATIVE) METHADONE NEGATIVE (NEGATIVE) OPIATE NEGATIVE (NEGATIVE) The urine drug screen is a qualitative screening test fordrug overdose and abuse. All screen results should beconsidered as presumptive.Drugs screened for are as follows:BenzodiazepinesCocaineAmphetamines/MetamphetaminesTHC (Tetrahydrocannabinol)OpiatesBarbituratesEcstasyMethadonePositive results are unconfirmed. For confirmation, notifythe lab for the specimen to be sent to the reference lab.All confirmations must be performed by a differentmethodology.The ingestion of natural herbal and plant productscontaining Ephedra/Ephedra metabolites can produce in urineone or more substances capable of cross reacting withamphetamine/methamphetamine immunoassays. These testsprovide a preliminary result only. A more specificalternative chemical method must be used to obtain aconfirmed analytical result. . Bedside Tests: Glucose normal - 96 (performed at bedside). Microbiology: Urine culture ordered. Pulse Oximetry: 01/06/2017 18:33 O2 saturation: 98%. (FIO2 - room air). Interpretation: normal. PROGRESS AND PROCEDURES Course of Care: Bactrim DS 1 tab PO. 01/06/2017 19:59 BP: 131/67. HR: 71. RR: 16. O2 saturation: 98%. Pain level now: 0/10. Patient/family counseled. Old ED records reviewed. Patient has had multiple ED visits (NATHALIE 16 visits to area ED's in past 12 months; Records from [facility] and [facility] ED's reviewed). Disposition: Discharged. Condition: stable and improved. CLINICAL IMPRESSION Acute urinary tract infection with cystitis. Intertrigo (right chest / under breast). Chronic bilateral foot pain. INSTRUCTIONS Drink plenty of fluids. Warnings: Further evaluation is necessary in order to recheck abnormal lab, obtain test results, conduct further tests and assess the possibility of serious illness. It is very important to follow up with a physician. GENERAL WARNINGS: Return or contact your physician immediately if your condition worsens or changes unexpectedly, if not improving as expected, or if other problems arise. Prescription Medications: Bactrim DS 800 mg / 160 mg: Take 1 tablet orally every 12 hours for 7 days. Dispense fourteen (14). No refills. Substitution is permissible. OTC Medications: Acetaminophen (available over the counter): take according to label instructions. Motrin (available over the counter): take according to label instructions. Clotrimazole 1% Cream (available over the counter): apply to affected area three times daily for 3 weeks, as needed for rash, until symptoms resolve. Dispense ninety (90) grams. No refills. Follow-up: Follow up with your doctor in about three days. Follow-up with: [facility], , , [facility] [address], , [place], [address]; [facility], , , [address] [place] [address], , [place], ; [facility], [facility], , [address] [place] [address] Follow up in about three days. (Electronically signed by Hector Reyes DO 01/06/2017 20:58)
--- NOTE | 2017-01-06 19:32 | ED NURSING NOTES ---
Clinical Report - Nurses [facility] [address] [place] [address] 01/06/2017 18:13 Patient: TED LEE TRIAGE Triage time 18:34 Jan 06 2017. Acuity: LEVEL 5. Chief Complaint: DELUSIONS and BIZARRE BEHAVIOR and (Patient is here today stating, "I think I am disolving, my feet are shrinking" Complains of feet hurting). 18:40 01/06/17. SEPSIS SCREEN: Sepsis Screen. Negative (no infection suspected/documented). COLIN COMA SCORE: Colin Coma Scale: 15- eyes open spontaneously (4); best verbal response- oriented x 4 (5); best motor response- obeys commands (6). --18:40 Hermila Prince R.N. 18:33 01/06/17. BP: 160/81 (regular adult cuff) taken on the left arm, while lying. HR: 108. RR: 18 (regular). O2 saturation: 98% on room air. Temp: 97.6 F (oral). Pain level now: 0/10. --18:40 Hermila Prince R.N. Weight: 72.5 kg stated. Height/Length: 64 inches Per Patient. BMI: 27.5. --18:36 Hermila Prince R.N. Medications None. --18:35 Hermila Prince R.N. Allergies None. --18:35 Hermila Prince R.N. History Historian: patient. Arrived (taxi). Primary physician (Dr Aragon). Onset. (one year ago). ( Patient shows a skin yeast under right breast, she says its been there for 4 years). No anxiety. Denies feelings of depression, sleeping difficulties or having hallucinations. Has not been confused. Has not been feeling agitated. 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 PAST MEDICAL HX: Hypertension. Psychiatric illness. Last normal menstrual period- 10 years ago. SOCIAL HX: Smoker- current status unknown. No alcohol use or drug use. No infectious disease exposure. ABUSE ASSESSMENT: No report of abuse. --18:40 Hermila Prince R.N. PROBLEMS: Breast Cancer. Mental Illness. Costochondritis. Diabetes Mellitus. Dyslexia. Hypertension. --18:35 Hermila Prince R.N. ADDITIONAL SURGERIES: Mastectomy. --18:35 Hermila Prince R.N. Interventions ID band on patient. To treatment room. --18:40 Hermila Prince R.N. PHYSICAL ASSESSMENT 18:42 01/06/17. Ambulatory to room. Patient gowned. GENERAL / NEURO / PSYCH: Alert. Oriented X 4. Poor eye contact. Affect appears normal. Patient appears calm and cooperative. Behavior appears abnormal, including paranoid behaviors. No apparent auditory hallucinations, visual hallucinations or tactile hallucinations. The patient appears to have altered thought processes ("I think my body is shriking, my feet are getting smaller and smaller and so is my legs"). Denies suicidal thoughts. She not combative. Patient appears well-nourished and unkempt. RESPIRATORY: Respirations not labored. Breath sounds within normal limits. CVS: Capillary refill less than 2 seconds. GI / : Abdomen soft and nontender. Bowel sounds within normal limits. SKIN: Skin is warm. --18:42 Hermila Prince R.N. SKIN: Erythematous skin rash located on the breast(s) (Patient has yeast infection under right breast, odorous and red). --18:50 Hermila Prince R.N. NURSING PROGRESS NOTES 18:43 01/06/17. The plan of care for this patient has been created. Patient gowned. Head of bed elevated. Reassurance given. Two patient identifiers checked. Call light placed in reach. Side rails up x 2. Bed placed in lowest position. Brakes of bed on. Patient ready for evaluation- chart flagged and ED physician notified. --18:43 Hermila Prince R.N. ( Breathalyzer was done and reported 0). --18:59 Hermila Prince R.N. Care transferred and report given (Sheri HARVEY). --19:12 Hermila Prince R.N. Finger stick glucose: 96; ordered; performed by tech; result shown to the RN. --19:28 Orlando Lewis [facility] Labor Supervisor 19:46 01/06/2017 Bactrim DS (Sulfamethoxazole-TMP DS) PO 1 tab given. Allergies verified and confirmed 5 rights. --19:46 Mayra Soto DISPOSITION / DISCHARGE Departure time: 20:01. Condition at departure: improved. No learning barriers present. Discharge instructions provided and reviewed with the patient. Reviewed medication(s) side effects, precautions, dosing and course information. Prescription(s) given to the patient. Treatments reviewed. Reviewed referrals. Follow up contact number. Patient verbalized understanding. Written instructions provided in Icelandic. No diet instructions, activity restrictions, note given or stop smoking instructions. The patient was discharged by the physician. She was discharged home. She left the Emergency Department ambulatory and via private vehicle. Patient driving. FALL RISK ASSESSMENT: Fall risk assessment completed. No fall risk identified. --20:01 Mayra Soto 19:59 01/06/17. BP: 131/67. HR: 71. RR: 16. O2 saturation: 98%. Temp: deferred. Pain level now: 0/10. --20:01 Mayra Soto Locked/Released at 01/06/2017 20:01 by Mayra Soto
--- NOTE | 2017-01-06 19:32 | ED CLINICAL REPORT ---
Clinical Report - Physicians/Mid Levels [facility] [address] [place] [address] 01/06/2017 18:13 Patient: TED LEE Time Seen: 18:36. Arrived- By private vehicle. Historian- patient. HISTORY OF PRESENT ILLNESS Chief Complaint: PAIN IN FEET; RASH UNDER RIGHT BREAST. This started about 1 year ago and is still present. It was gradual in onset and has been waxing/waning. At its maximum, severity described as moderate. When seen in the E.D., severity described as moderate. Modifying factors- worsened by walking. Relieved by rest. (Walking makes feet worse). No headache, fatigue, muscle aches or weakness. Denies sleep problem. Similar symptoms previously: Recent medical care: The patient was seen recently at another facility in the emergency department. REVIEW OF SYSTEMS Last normal menstrual period- 10 years ago. No fever, sore throat, sinus drainage, nasal congestion or difficulty breathing. No chest pain, abdominal pain, nausea, vomiting or diarrhea. No black stools, bloody stools, difficulty with urination, back pain or calf pain. The patient has had skin rash located on the chest (under right breast). She has had difficulty with ambulation (states feet hurt when she walks a long distance). All systems otherwise negative, except as recorded above. PAST HISTORY See nurses notes. Diabetes mellitus. Gastritis. Tinea pedis. Schizophrenia. Dyslexia. History of breast cancer. Surgeries: Left mastectomy (15 years ago). Medications: None. Allergies: None. SOCIAL HISTORY Never smoker. No alcohol use or drug use. ADDITIONAL NOTES The nursing notes have been reviewed. PHYSICAL EXAM Vital Signs: 01/06/2017 18:33 BP: 160/81. HR: 108. RR: 18. O2 saturation: 98%. Temp: 97.6 F. Pain level now: 0/10. Appearance: Alert. Anxious. Patient in mild distress. Eyes: Eyes normal inspection. No scleral icterus or pale conjunctivae. ENT: Pharynx normal. No pharyngeal erythema or tonsillar exudate. The mucous membranes are not dry. Neck: Normal inspection. Neck supple. CVS: Normal heart rate and rhythm. Heart sounds normal. Pulses normal. Respiratory: No respiratory distress. Breath sounds normal. Abdomen: No visible injury. Soft and nontender. Back: Normal inspection. Skin: No cyanosis. Moderate skin rash (yeast / intertrigo rash under right breast with erythema and mild weeping). No pallor or diaphoresis. Neuro: Oriented X 3. No motor deficit. No sensory deficit. LABS, X-RAYS, AND EKG Laboratory Tests: UA-Culture if indicated: (JEMMA: 01/06/2017 18:40) ( [facility] 01/06/2017 19:12) Final results Test Result Flag Units (Reference) URINE COLOR YELLOW URINE APPEARANCE CLEAR URINE GLUCOSE NEGATIVE (NEGATIVE) URINE BILIRUBIN NEGATIVE (NEGATIVE) URINE KETONE NEGATIVE (NEGATIVE) URINE SPECIFIC GRAVITY >= 1.030 (1.010-1.030) URINE PH 6.0 (5.0-8.0) URINE PROTEIN NEGATIVE (NEGATIVE) URINE UROBILINOGEN 0.2 EU/dL (0.2-1.0) URINE NITRITE NEGATIVE (NEGATIVE) URINE BLOOD NEGATIVE (NEGATIVE) URINE LEUK ESTERASE POSITIVE (NEGATIVE) URINE RBC NONE SEEN rbc/hpf (0-1) URINE WBC 5-10 wbc/hpf (0-1) URINE EPITHELIAL CELLS 0-1 EPI/hpf (0-5) URINE BACTERIA FEW (1+) (NONE SEEN) URINE COMMENT CULTURE INDICATED 1+ MUCUSURINE CULTURES ARE SET-UP BASED ON THE FOLLOWING CRITERIA:POSITIVE NITRITEPOSITIVE LEUKOCYTE ESTERASEGREATER THAN 10 WHITE BLOOD CELLSMODERATE (2+) OR GREATER BACTERIA Urine: (JEMMA: 01/06/2017 18:00) ( [facility] 01/06/2017 19:54) Final results Test Result Flag Units (Reference) URINE NEGATIVE Urine Drug Screen: (JEMMA: 01/06/2017 18:40) ( [facility] 01/06/2017 19:15) Final results Test Result Flag Units (Reference) AMPHETAMINE/METHAMPHETAMINE NEGATIVE (NEGATIVE) BARBITURATE NEGATIVE (NEGATIVE) BENZODIAZEPINE NEGATIVE (NEGATIVE) CANNABINOID NEGATIVE (NEGATIVE) COCAINE NEGATIVE (NEGATIVE) ECSTASY NEGATIVE (NEGATIVE) METHADONE NEGATIVE (NEGATIVE) OPIATE NEGATIVE (NEGATIVE) The urine drug screen is a qualitative screening test fordrug overdose and abuse. All screen results should beconsidered as presumptive.Drugs screened for are as follows:BenzodiazepinesCocaineAmphetamines/MetamphetaminesTHC (Tetrahydrocannabinol)OpiatesBarbituratesEcstasyMethadonePositive results are unconfirmed. For confirmation, notifythe lab for the specimen to be sent to the reference lab.All confirmations must be performed by a differentmethodology.The ingestion of natural herbal and plant productscontaining Ephedra/Ephedra metabolites can produce in urineone or more substances capable of cross reacting withamphetamine/methamphetamine immunoassays. These testsprovide a preliminary result only. A more specificalternative chemical method must be used to obtain aconfirmed analytical result. . Bedside Tests: Glucose normal - 96 (performed at bedside). Microbiology: Urine culture ordered. Pulse Oximetry: 01/06/2017 18:33 O2 saturation: 98%. (FIO2 - room air). Interpretation: normal. PROGRESS AND PROCEDURES Course of Care: Bactrim DS 1 tab PO. 01/06/2017 19:59 BP: 131/67. HR: 71. RR: 16. O2 saturation: 98%. Pain level now: 0/10. Patient/family counseled. Old ED records reviewed. Patient has had multiple ED visits (NATHALIE 16 visits to area ED's in past 12 months; Records from [facility] and [facility] ED's reviewed). Disposition: Discharged. Condition: stable and improved. CLINICAL IMPRESSION Acute urinary tract infection with cystitis. Intertrigo (right chest / under breast). Chronic bilateral foot pain. INSTRUCTIONS Drink plenty of fluids. Warnings: Further evaluation is necessary in order to recheck abnormal lab, obtain test results, conduct further tests and assess the possibility of serious illness. It is very important to follow up with a physician. GENERAL WARNINGS: Return or contact your physician immediately if your condition worsens or changes unexpectedly, if not improving as expected, or if other problems arise. Prescription Medications: Bactrim DS 800 mg / 160 mg: Take 1 tablet orally every 12 hours for 7 days. Dispense fourteen (14). No refills. Substitution is permissible. OTC Medications: Acetaminophen (available over the counter): take according to label instructions. Motrin (available over the counter): take according to label instructions. Clotrimazole 1% Cream (available over the counter): apply to affected area three times daily for 3 weeks, as needed for rash, until symptoms resolve. Dispense ninety (90) grams. No refills. Follow-up: Follow up with your doctor in about three days. Follow-up with: [facility], , , [facility] [address], , [place], [address]; [facility], , , [address] [place] [address], , [place], ; [facility], , [address] [place] [address] Follow up in about three days. (Electronically signed by Hector Reyes DO 01/06/2017 20:58)
--- NOTE | 2017-01-06 20:58 | ED MAR SUMMARY ---
..... Medication Administration Record [facility] [address] [place] [address] Patient: TED LEE Visit ID: [id number] 56y, F Weight: 72.5 kg Height/Length: 64 in BMI: 27.5 ALLERGIES: None Given 19:46 01/06/2017 Mayra Soto Medication Administered: BACTRIM DS [PO] (SULFAMETHOXAZOLE-TMP DS), Dose: 1 tab PO. Medication Ordered: Bactrim DS PO (Tablet 800-160 mg) 1 tab (NOW).
--- NOTE | 2017-01-06 20:58 | ED MAR SUMMARY ---
..... Medication Administration Record Located Within [facility] [address] [place] [address] Patient: TED LEE Visit ID: [id number] 56y, F Weight: 72.5 kg Height/Length: 64 in BMI: 27.5 ALLERGIES: None Given 19:46 01/06/2017 Mayra Soto Medication Administered: BACTRIM DS [PO] (SULFAMETHOXAZOLE-TMP DS), Dose: 1 tab PO. Medication Ordered: Bactrim DS PO (Tablet 800-160 mg) 1 tab (NOW).
--- NOTE | 2017-01-06 20:58 | ED MED RECONCILIATION SUMMARY ---
Patient: TED LEE Medication Reconciliation Report [facility] VisitID: [id number] [address] [place] [address] 56y, F Registration Date/Time: 01/06/2017 Weight: 72.5 kg Height/Length: 64 in. BMI: 27.5 ALLERGIES: None The patient's Home Medications are listed below: NONE. The source(s) of the original Home Medication information: Not obtained. The following Medications were given to the patient in the Emergency Department: Bactrim DS [PO] PO 1 tab, administered: 01/06/2017 7:46:00 PM The following Medications were prescribed to the patient: Acetaminophen (available over the counter): take according to label instructions. -- Hector Reyes DO Motrin (available over the counter): take according to label instructions. -- Hector Reyes DO Bactrim DS 800 mg / 160 mg: Take 1 tablet orally every 12 hours for 7 days. Dispense fourteen (14). No refills. Substitution is permissible. -- Hector Reyes DO Clotrimazole 1% Cream (available over the counter): apply to affected area three times daily for 3 weeks, as needed for rash, until symptoms resolve. Dispense ninety (90) grams. No refills. -- Hector Reyes DO
--- NOTE | 2017-01-06 20:58 | ED DISCHARGE INSTRUCTIONS ---
Patient: TED LEE General Instructions [facility] VisitID: [id number] [address] [place] [address] 56y, F Registration Date/Time: 01/06/2017 Acute urinary tract infection with cystitis. Intertrigo (right chest / under breast). Chronic bilateral foot pain. INSTRUCTIONS Drink plenty of fluids. Warnings: Further evaluation is necessary in order to recheck abnormal lab, obtain test results, conduct further tests and assess the possibility of serious illness. It is very important to follow up with a physician. GENERAL WARNINGS: Return or contact your physician immediately if your condition worsens or changes unexpectedly, if not improving as expected, or if other problems arise. Prescription Medications: Bactrim DS 800 mg / 160 mg: Take 1 tablet orally every 12 hours for 7 days. Dispense fourteen (14). No refills. Substitution is permissible. OTC Medications: Acetaminophen (available over the counter): take according to label instructions. Motrin (available over the counter): take according to label instructions. Clotrimazole 1% Cream (available over the counter): apply to affected area three times daily for 3 weeks, as needed for rash, until symptoms resolve. Dispense ninety (90) grams. No refills. Follow-up: Follow up with your doctor in about three days. Follow-up with: [facility], , , [address], [place] [address]; [facility], , , [address] [place] [address], ; [facility], [facility], , [address] [place] [address] Follow up in about three days. ADDITIONAL INFORMATION Bladder Infection,Female (Adult) A bladder infection ("cystitis" or "UTI") usually causes a constant urge to urinate and a burning when passing urine. Urine may be cloudy, smelly or dark. There may be pain in the lower abdomen. A bladder infection occurs when bacteria from the vaginal area enter the bladder opening (urethra). This can occur from sexual intercourse, wearing tight clothing, dehydration and other factors. Home Care: Drink lots of fluids (at least 6-8 glasses a day, unless you must restrict fluids for other medical reasons). This will force the medicine into your urinary system and flush the bacteria out of your body. Avoid sexual intercourse until your symptoms are gone. Avoid caffeine, alcohol and spicy foods. These can irritate the bladder. A bladder infection is treated with antibiotics. You may also be given Pyridium (generic = phenazopyridine) to reduce the burning sensation. This medicine will cause your urine to become a bright orange color. The orange urine may stain clothing. You may wear a pad or panty-liner to protect clothing. Preventing Future Infections: Always wipe from front to back after a bowel movement. Keep the genital area clean and dry. Drink plenty of fluids each day to avoid dehydration. Both sexual partners should wash before intercourse. Urinate right after intercourse to flush out the bladder. Wear cotton underwear and cotton-lined panty hose; avoid tight-fitting pants. If you are on control pills and are having frequent bladder infections, discuss with your doctor. Follow Up: Return to this facility or see your doctor if ALL symptoms are not gone after three days of treatment. Get Prompt Medical Attention if any of the following occur: Fever of 100.4F (38C) or higher, or as directed by your healthcare provider No improvement by the third day of treatment Increasing back or abdominal pain Repeated vomiting; unable to keep medicine down Weakness, dizziness or fainting Vaginal discharge Pain, redness or swelling in the labia (outer vaginal area) Fungal Infection, General [Skin] Fungal skin infections (including what is called yeast infection) are caused by several different types of fungi. The most common fungal infection is Najma. Athletes foot, ringworm and a groin rash called jock itch are caused by other types of fungi. Infants and people with weakened immune system (Diabetes, HIV disease or cancer, treatment with chemotherapy or immune suppressants) are more prone to fungal infections. These can spread to the rest of the body and cause severe illness. Common fungal infections are treated with creams on the skin or oral medicine. Home Care: If you were prescribed a cream, it should be applied exactly as directed. It may take a week before the fungus starts to go away and it can take 2 to 4 weeks to fully clear. To prevent a recurrence, continue the medicine until the rash is all gone. If you were prescribed an oral medicine, read the patient information. These are strong medicines and can have important side effects. Follow Up with your doctor or as advised by our staff if the rash is not starting to improve after 10 days of treatment or if the rash spreads to other areas of the body. Get Prompt Medical Attention if any of the following occur: Increasing redness around the rash Increasing scalp swelling Fluid draining from the rash Difficulty or pain with swallowing Appearance of new white spots in the mouth or throat Fever of 100.4 F (38 C) or higher, or as directed by your healthcare provider Sulfamethoxazole, Trimethoprim Oral tablet What is this medicine? SULFAMETHOXAZOLE; TRIMETHOPRIM or SMX-TMP (suhl fuh meth OK gilberto zohl; trye METH oh prim) is a combination of a sulfonamide antibiotic and a second antibiotic, trimethoprim. It is used to treat or prevent certain kinds of bacterial infections. It will not work for colds, flu, or other viral infections. How should I use this medicine? Take this medicine by mouth with a full glass of water. Follow the directions on the prescription label. Take your medicine at regular intervals. Do not take it more often than directed. Do not skip doses or stop your medicine early. Talk to your nut processing supervisor regarding the use of this medicine in children. Special care may be needed. This medicine has been used in children as young as 2 months of age. What side effects may I notice from receiving this medicine? Side effects that you should report to your doctor or health farm or ranch animal caretaker as soon as possible: allergic reactions like skin rash or hives, swelling of the face, lips, or tongue breathing problems fever or chills, sore throat irregular heartbeat, chest pain joint or muscle pain pain or difficulty passing urine red pinpoint spots on skin redness, blistering, peeling or loosening of the skin, including inside the mouth unusual bleeding or bruising unusually weak or tired yellowing of the eyes or skin Side effects that usually do not require medical attention (report to your doctor or health farm or ranch animal caretaker if they continue or are bothersome): diarrhea dizziness headache loss of appetite nausea, vomiting nervousness What may interact with this medicine? Do not take this medicine with any of the following medications: aminobenzoate potassium dofetilide metronidazole This medicine may also interact with the following medications: SIENA inhibitors like benazepril, enalapril, lisinopril, and ramipril cyclosporine digoxin diuretics indomethacin medicines for diabetes methenamine methotrexate phenytoin potassium supplements pyrimethamine sulfinpyrazone tricyclic antidepressants warfarin What if I miss a dose? If you miss a dose, take it as soon as you can. If it is almost time for your next dose, take only that dose. Do not take double or extra doses. Where should I keep my medicine? Keep out of the reach of children. Store at room temperature between 20 to 25 degrees C (68 to 77 degrees F). Protect from light. Throw away any unused medicine after the expiration date. What should I tell my health care provider before I take this medicine? They need to know if you have any of these conditions: anemia asthma being treated with anticonvulsants if you frequently drink alcohol containing drinks kidney disease liver disease low level of folic acid or [id number] dehydrogenase poor nutrition or malabsorption porphyria severe allergies thyroid disorder an unusual or allergic reaction to sulfamethoxazole, trimethoprim, sulfa drugs, other medicines, foods, dyes, or preservatives or trying to get breast-feeding What should I watch for while using this medicine? Tell your doctor or health farm or ranch animal caretaker if your symptoms do not improve. Drink several glasses of water a day to reduce the risk of kidney problems. Do not treat diarrhea with over the counter products. Contact your doctor if you have diarrhea that lasts more than 2 days or if it is severe and watery. This medicine can make you more sensitive to the sun. Keep out of the sun. If you cannot avoid being in the sun, wear protective clothing and use a sunscreen. Do not use sun lamps or tanning beds/booths. Acetaminophen Oral tablet What is this medicine? ACETAMINOPHEN (a set a ROSEANNA tacho fen) is a pain reliever. It is used to treat mild pain and fever. How should I use this medicine? Take this medicine by mouth with a glass of water. Follow the directions on the package or prescription label. Take your medicine at regular intervals. Do not take your medicine more often than directed. Talk to your nut processing supervisor regarding the use of this medicine in children. While this drug may be prescribed for children as young as 6 years of age for selected conditions, precautions do apply. What side effects may I notice from receiving this medicine? Side effects that you should report to your doctor or health farm or ranch animal caretaker as soon as possible: allergic reactions like skin rash, itching or hives, swelling of the face, lips, or tongue breathing problems fever or sore throat redness, blistering, peeling or loosening of the skin, including inside the mouth trouble passing urine or change in the amount of urine unusual bleeding or bruising unusually weak or tired yellowing of the eyes or skin Side effects that usually do not require medical attention (report to your doctor or health farm or ranch animal caretaker if they continue or are bothersome): headache nausea, stomach upset What may interact with this medicine? alcohol imatinib isoniazid other medicines with acetaminophen What if I miss a dose? If you miss a dose, take it as soon as you can. If it is almost time for your next dose, take only that dose. Do not take double or extra doses. Where should I keep my medicine? Keep out of reach of children. Store at room temperature between 20 and 25 degrees C (68 and 77 degrees F). Protect from moisture and heat. Throw away any unused medicine after the expiration date. What should I tell my health care provider before I take this medicine? They need to know if you have any of these conditions: if you frequently drink alcohol containing drinks liver disease an unusual or allergic reaction to acetaminophen, other medicines, foods, dyes or preservatives or trying to get breast-feeding What should I watch for while using this medicine? Tell your doctor or health farm or ranch animal caretaker if the pain lasts more than 10 days (5 days for children), if it gets worse, or if there is a new or different kind of pain. Also, check with your doctor if a fever lasts for more than 3 days. Do not take other medicines that contain acetaminophen with this medicine. Always read labels carefully. If you have questions, ask your doctor or pharmacist. If you take too much acetaminophen get medical help right away. Too much acetaminophen can be very dangerous and cause liver damage. Even if you do not have symptoms, it is important to get help right away. Ibuprofen Oral tablet What is this medicine? IBUPROFEN (eye BYOO proe fen) is a non-steroidal anti-inflammatory drug (NSAID). It is used for dental pain, fever, headaches or migraines, osteoarthritis, rheumatoid arthritis, or painful monthly periods. It can also relieve minor aches and pains caused by a cold, flu, or sore throat. How should I use this medicine? Take this medicine by mouth with a glass of water. Follow the directions on the prescription label. Take this medicine with food if your stomach gets upset. Try to not lie down for at least 10 minutes after you take the medicine. Take your medicine at regular intervals. Do not take your medicine more often than directed. A special MedGuide will be given to you by the pharmacist with each prescription and refill. Be sure to read this information carefully each time. Talk to your nut processing supervisor regarding the use of this medicine in children. Special care may be needed. What side effects may I notice from receiving this medicine? Side effects that you should report to your doctor or health farm or ranch animal caretaker as soon as possible: allergic reactions like skin rash, itching or hives, swelling of the face, lips, or tongue black or bloody stools, blood in the urine or in vomit breathing problems changes in vision chest pain general ill feeling or flu-like symptoms nausea or vomiting redness, blistering, peeling or loosening of the skin, including inside the mouth slurred speech or weakness on one side of the body stomach pain unexplained weight gain or swelling unusually weak or tired yellowing of eyes or skin Side effects that usually do not require medical attention (report to your doctor or health farm or ranch animal caretaker if they continue or are bothersome): constipation or diarrhea dizziness gas or heartburn stomach upset What may interact with this medicine? Do not take this medicine with any of the following medications: cidofovir ketorolac methotrexate pemetrexed This medicine may also interact with the following medications: alcohol aspirin diuretics lithium other drugs for inflammation like prednisone warfarin What if I miss a dose? If you miss a dose, take it as soon as you can. If it is almost time for your next dose, take only that dose. Do not take double or extra doses. Where should I keep my medicine? Keep out of the reach of children. Store at room temperature between 15 and 30 degrees C (59 and 86 degrees F). Keep container tightly closed. Throw away any unused medicine after the expiration date. What should I tell my health care provider before I take this medicine? They need to know if you have any of these conditions: asthma cigarette smoker drink more than 3 alcohol containing drinks a day heart disease or circulation problems such as heart failure or leg edema (fluid retention) high blood pressure kidney disease liver disease stomach bleeding or ulcers an unusual or allergic reaction to ibuprofen, aspirin, other NSAIDS, other medicines, foods, dyes, or preservatives or trying to get breast-feeding What should I watch for while using this medicine? Tell your doctor or healthcare professional if your symptoms do not start to get better or if they get worse. This medicine does not prevent heart attack or stroke. In fact, this medicine may increase the chance of a heart attack or stroke. The chance may increase with longer use of this medicine and in people who have heart disease. If you take aspirin to prevent heart attack or stroke, talk with your doctor or health farm or ranch animal caretaker. Do not take other medicines that contain aspirin, ibuprofen, or naproxen with this medicine. Side effects such as stomach upset, nausea, or ulcers may be more likely to occur. Many medicines available without a prescription should not be taken with this medicine. This medicine can cause ulcers and bleeding in the stomach and intestines at any time during treatment. Ulcers and bleeding can happen without warning symptoms and can cause . To reduce your risk, do not smoke cigarettes or drink alcohol while you are taking this medicine. You may get drowsy or dizzy. Do not drive, use machinery, or do anything that needs mental alertness until you know how this medicine affects you. Do not stand or sit up quickly, especially if you are an older patient. This reduces the risk of dizzy or fainting spells. This medicine can cause you to bleed more easily. Try to avoid damage to your teeth and gums when you brush or floss your teeth. Clotrimazole Topical solution What is this medicine? CLOTRIMAZOLE (kloe TRIM a zole) is an antifungal medicine. It is used to treat certain kinds of fungal or yeast infections of the skin. How should I use this medicine? This medicine is for external use only. Do not take by mouth. Follow the directions on the prescription label. Wash your hands before and after use. If treating a hand or nail infection, wash hands before use only. Apply a thin layer to the affected area and a small amount to the surrounding area. Rub in gently. Do not get this medicine in your eyes. If you do, rinse out with plenty of cool tap water. Use this medicine at regular intervals. Do not use more often than directed. Finish the full course prescribed by your doctor or health farm or ranch animal caretaker even if you think you are better. Do not stop using except on your doctor's advice. Talk to your nut processing supervisor regarding the use of this medicine in children. While this drug has been used in young children for selected conditions, precautions do apply. What side effects may I notice from receiving this medicine? Side effects that usually do not require medical attention (report to your doctor or health farm or ranch animal caretaker if they continue or are bothersome): allergic reactions like skin rash, itching or hives, swelling of the face, lips, or tongue skin irritation, burning What may interact with this medicine? amphotericin b topical products that have nystatin What if I miss a dose? If you miss a dose, use it as soon as you can. If it is almost time for your next dose, use only that dose. Do not use double or extra doses. Where should I keep my medicine? Keep out of the reach of children. Store at room temperature between 2 to 30 degrees C (36 to 86 degrees F). Do not freeze. Throw away any unused medicine after the expiration date. What should I tell my health care provider before I take this medicine? They need to know if you have any of these conditions: an unusual or allergic reaction to clotrimazole, other antifungals or medicines, foods, dyes or preservatives or trying to get breast-feeding What should I watch for while using this medicine? Tell your doctor or health farm or ranch animal caretaker if your symptoms do not start to improve after 7 days. Do not self-medicate for more than one week. If you are using this medicine for 'jock itch' be sure to dry the groin completely after bathing. Do not wear underwear that is tight-fitting or made from synthetic fibers like avtar or nylon. Wear loose-fitting, cotton underwear. If you are using this medicine for athlete's foot be sure to dry your feet carefully after bathing, especially between the toes. Do not wear socks made from wool or synthetic materials like avtar or nylon. Wear clean cotton socks and change them at least once a day, change them more if your feet sweat a lot. Also, try to wear sandals or shoes that are well-ventilated. You have been given the following additional information: Bladder Infection, Female (Adult) Fungal Infection, Skin [General] Sulfamethoxazole, Trimethoprim Oral tablet Acetaminophen Oral tablet Ibuprofen Oral tablet Clotrimazole Topical solution (Electronically signed by Hector Reyes DO 01/06/2017 20:58)
--- NOTE | 2017-01-06 20:58 | ED DISCHARGE INSTRUCTIONS ---
Patient: TED LEE General Instructions [facility] VisitID: [id number] [address] [place] [address] 56y, F Registration Date/Time: 01/06/2017 Acute urinary tract infection with cystitis. Intertrigo (right chest / under breast). Chronic bilateral foot pain. INSTRUCTIONS Drink plenty of fluids. Warnings: Further evaluation is necessary in order to recheck abnormal lab, obtain test results, conduct further tests and assess the possibility of serious illness. It is very important to follow up with a physician. GENERAL WARNINGS: Return or contact your physician immediately if your condition worsens or changes unexpectedly, if not improving as expected, or if other problems arise. Prescription Medications: Bactrim DS 800 mg / 160 mg: Take 1 tablet orally every 12 hours for 7 days. Dispense fourteen (14). No refills. Substitution is permissible. OTC Medications: Acetaminophen (available over the counter): take according to label instructions. Motrin (available over the counter): take according to label instructions. Clotrimazole 1% Cream (available over the counter): apply to affected area three times daily for 3 weeks, as needed for rash, until symptoms resolve. Dispense ninety (90) grams. No refills. Follow-up: Follow up with your doctor in about three days. Follow-up with: [facility], , , [address], [place] [address]; [facility], , , [address] [place] [address], ; [facility], [facility], , [address] [place] [address] Follow up in about three days. ADDITIONAL INFORMATION Bladder Infection,Female (Adult) A bladder infection ("cystitis" or "UTI") usually causes a constant urge to urinate and a burning when passing urine. Urine may be cloudy, smelly or dark. There may be pain in the lower abdomen. A bladder infection occurs when bacteria from the vaginal area enter the bladder opening (urethra). This can occur from sexual intercourse, wearing tight clothing, dehydration and other factors. Home Care: Drink lots of fluids (at least 6-8 glasses a day, unless you must restrict fluids for other medical reasons). This will force the medicine into your urinary system and flush the bacteria out of your body. Avoid sexual intercourse until your symptoms are gone. Avoid caffeine, alcohol and spicy foods. These can irritate the bladder. A bladder infection is treated with antibiotics. You may also be given Pyridium (generic = phenazopyridine) to reduce the burning sensation. This medicine will cause your urine to become a bright orange color. The orange urine may stain clothing. You may wear a pad or panty-liner to protect clothing. Preventing Future Infections: Always wipe from front to back after a bowel movement. Keep the genital area clean and dry. Drink plenty of fluids each day to avoid dehydration. Both sexual partners should wash before intercourse. Urinate right after intercourse to flush out the bladder. Wear cotton underwear and cotton-lined panty hose; avoid tight-fitting pants. If you are on control pills and are having frequent bladder infections, discuss with your doctor. Follow Up: Return to this facility or see your doctor if ALL symptoms are not gone after three days of treatment. Get Prompt Medical Attention if any of the following occur: Fever of 100.4F (38C) or higher, or as directed by your healthcare provider No improvement by the third day of treatment Increasing back or abdominal pain Repeated vomiting; unable to keep medicine down Weakness, dizziness or fainting Vaginal discharge Pain, redness or swelling in the labia (outer vaginal area) Fungal Infection, General [Skin] Fungal skin infections (including what is called yeast infection) are caused by several different types of fungi. The most common fungal infection is Najma. Athletes foot, ringworm and a groin rash called jock itch are caused by other types of fungi. Infants and people with weakened immune system (Diabetes, HIV disease or cancer, treatment with chemotherapy or immune suppressants) are more prone to fungal infections. These can spread to the rest of the body and cause severe illness. Common fungal infections are treated with creams on the skin or oral medicine. Home Care: If you were prescribed a cream, it should be applied exactly as directed. It may take a week before the fungus starts to go away and it can take 2 to 4 weeks to fully clear. To prevent a recurrence, continue the medicine until the rash is all gone. If you were prescribed an oral medicine, read the patient information. These are strong medicines and can have important side effects. Follow Up with your doctor or as advised by our staff if the rash is not starting to improve after 10 days of treatment or if the rash spreads to other areas of the body. Get Prompt Medical Attention if any of the following occur: Increasing redness around the rash Increasing scalp swelling Fluid draining from the rash Difficulty or pain with swallowing Appearance of new white spots in the mouth or throat Fever of 100.4 F (38 C) or higher, or as directed by your healthcare provider Sulfamethoxazole, Trimethoprim Oral tablet What is this medicine? SULFAMETHOXAZOLE; TRIMETHOPRIM or SMX-TMP (suhl fuh meth OK gilberto zohl; trye METH oh prim) is a combination of a sulfonamide antibiotic and a second antibiotic, trimethoprim. It is used to treat or prevent certain kinds of bacterial infections. It will not work for colds, flu, or other viral infections. How should I use this medicine? Take this medicine by mouth with a full glass of water. Follow the directions on the prescription label. Take your medicine at regular intervals. Do not take it more often than directed. Do not skip doses or stop your medicine early. Talk to your cloth boil off machine operator regarding the use of this medicine in children. Special care may be needed. This medicine has been used in children as young as 2 months of age. What side effects may I notice from receiving this medicine? Side effects that you should report to your doctor or health home health care respiratory therapist as soon as possible: allergic reactions like skin rash or hives, swelling of the face, lips, or tongue breathing problems fever or chills, sore throat irregular heartbeat, chest pain joint or muscle pain pain or difficulty passing urine red pinpoint spots on skin redness, blistering, peeling or loosening of the skin, including inside the mouth unusual bleeding or bruising unusually weak or tired yellowing of the eyes or skin Side effects that usually do not require medical attention (report to your doctor or health home health care respiratory therapist if they continue or are bothersome): diarrhea dizziness headache loss of appetite nausea, vomiting nervousness What may interact with this medicine? Do not take this medicine with any of the following medications: aminobenzoate potassium dofetilide metronidazole This medicine may also interact with the following medications: SIENA inhibitors like benazepril, enalapril, lisinopril, and ramipril cyclosporine digoxin diuretics indomethacin medicines for diabetes methenamine methotrexate phenytoin potassium supplements pyrimethamine sulfinpyrazone tricyclic antidepressants warfarin What if I miss a dose? If you miss a dose, take it as soon as you can. If it is almost time for your next dose, take only that dose. Do not take double or extra doses. Where should I keep my medicine? Keep out of the reach of children. Store at room temperature between 20 to 25 degrees C (68 to 77 degrees F). Protect from light. Throw away any unused medicine after the expiration date. What should I tell my health care provider before I take this medicine? They need to know if you have any of these conditions: anemia asthma being treated with anticonvulsants if you frequently drink alcohol containing drinks kidney disease liver disease low level of folic acid or sucqain-7-tntbelnja dehydrogenase poor nutrition or malabsorption porphyria severe allergies thyroid disorder an unusual or allergic reaction to sulfamethoxazole, trimethoprim, sulfa drugs, other medicines, foods, dyes, or preservatives or trying to get breast-feeding What should I watch for while using this medicine? Tell your doctor or health home health care respiratory therapist if your symptoms do not improve. Drink several glasses of water a day to reduce the risk of kidney problems. Do not treat diarrhea with over the counter products. Contact your doctor if you have diarrhea that lasts more than 2 days or if it is severe and watery. This medicine can make you more sensitive to the sun. Keep out of the sun. If you cannot avoid being in the sun, wear protective clothing and use a sunscreen. Do not use sun lamps or tanning beds/booths. Acetaminophen Oral tablet What is this medicine? ACETAMINOPHEN (a set a ROSEANNA tacho fen) is a pain reliever. It is used to treat mild pain and fever. How should I use this medicine? Take this medicine by mouth with a glass of water. Follow the directions on the package or prescription label. Take your medicine at regular intervals. Do not take your medicine more often than directed. Talk to your cloth boil off machine operator regarding the use of this medicine in children. While this drug may be prescribed for children as young as 6 years of age for selected conditions, precautions do apply. What side effects may I notice from receiving this medicine? Side effects that you should report to your doctor or health home health care respiratory therapist as soon as possible: allergic reactions like skin rash, itching or hives, swelling of the face, lips, or tongue breathing problems fever or sore throat redness, blistering, peeling or loosening of the skin, including inside the mouth trouble passing urine or change in the amount of urine unusual bleeding or bruising unusually weak or tired yellowing of the eyes or skin Side effects that usually do not require medical attention (report to your doctor or health home health care respiratory therapist if they continue or are bothersome): headache nausea, stomach upset What may interact with this medicine? alcohol imatinib isoniazid other medicines with acetaminophen What if I miss a dose? If you miss a dose, take it as soon as you can. If it is almost time for your next dose, take only that dose. Do not take double or extra doses. Where should I keep my medicine? Keep out of reach of children. Store at room temperature between 20 and 25 degrees C (68 and 77 degrees F). Protect from moisture and heat. Throw away any unused medicine after the expiration date. What should I tell my health care provider before I take this medicine? They need to know if you have any of these conditions: if you frequently drink alcohol containing drinks liver disease an unusual or allergic reaction to acetaminophen, other medicines, foods, dyes or preservatives or trying to get breast-feeding What should I watch for while using this medicine? Tell your doctor or health home health care respiratory therapist if the pain lasts more than 10 days (5 days for children), if it gets worse, or if there is a new or different kind of pain. Also, check with your doctor if a fever lasts for more than 3 days. Do not take other medicines that contain acetaminophen with this medicine. Always read labels carefully. If you have questions, ask your doctor or pharmacist. If you take too much acetaminophen get medical help right away. Too much acetaminophen can be very dangerous and cause liver damage. Even if you do not have symptoms, it is important to get help right away. Ibuprofen Oral tablet What is this medicine? IBUPROFEN (eye BYOO proe fen) is a non-steroidal anti-inflammatory drug (NSAID). It is used for dental pain, fever, headaches or migraines, osteoarthritis, rheumatoid arthritis, or painful monthly periods. It can also relieve minor aches and pains caused by a cold, flu, or sore throat. How should I use this medicine? Take this medicine by mouth with a glass of water. Follow the directions on the prescription label. Take this medicine with food if your stomach gets upset. Try to not lie down for at least 10 minutes after you take the medicine. Take your medicine at regular intervals. Do not take your medicine more often than directed. A special MedGuide will be given to you by the pharmacist with each prescription and refill. Be sure to read this information carefully each time. Talk to your cloth boil off machine operator regarding the use of this medicine in children. Special care may be needed. What side effects may I notice from receiving this medicine? Side effects that you should report to your doctor or health home health care respiratory therapist as soon as possible: allergic reactions like skin rash, itching or hives, swelling of the face, lips, or tongue black or bloody stools, blood in the urine or in vomit breathing problems changes in vision chest pain general ill feeling or flu-like symptoms nausea or vomiting redness, blistering, peeling or loosening of the skin, including inside the mouth slurred speech or weakness on one side of the body stomach pain unexplained weight gain or swelling unusually weak or tired yellowing of eyes or skin Side effects that usually do not require medical attention (report to your doctor or health home health care respiratory therapist if they continue or are bothersome): constipation or diarrhea dizziness gas or heartburn stomach upset What may interact with this medicine? Do not take this medicine with any of the following medications: cidofovir ketorolac methotrexate pemetrexed This medicine may also interact with the following medications: alcohol aspirin diuretics lithium other drugs for inflammation like prednisone warfarin What if I miss a dose? If you miss a dose, take it as soon as you can. If it is almost time for your next dose, take only that dose. Do not take double or extra doses. Where should I keep my medicine? Keep out of the reach of children. Store at room temperature between 15 and 30 degrees C (59 and 86 degrees F). Keep container tightly closed. Throw away any unused medicine after the expiration date. What should I tell my health care provider before I take this medicine? They need to know if you have any of these conditions: asthma cigarette smoker drink more than 3 alcohol containing drinks a day heart disease or circulation problems such as heart failure or leg edema (fluid retention) high blood pressure kidney disease liver disease stomach bleeding or ulcers an unusual or allergic reaction to ibuprofen, aspirin, other NSAIDS, other medicines, foods, dyes, or preservatives or trying to get breast-feeding What should I watch for while using this medicine? Tell your doctor or healthcare professional if your symptoms do not start to get better or if they get worse. This medicine does not prevent heart attack or stroke. In fact, this medicine may increase the chance of a heart attack or stroke. The chance may increase with longer use of this medicine and in people who have heart disease. If you take aspirin to prevent heart attack or stroke, talk with your doctor or health home health care respiratory therapist. Do not take other medicines that contain aspirin, ibuprofen, or naproxen with this medicine. Side effects such as stomach upset, nausea, or ulcers may be more likely to occur. Many medicines available without a prescription should not be taken with this medicine. This medicine can cause ulcers and bleeding in the stomach and intestines at any time during treatment. Ulcers and bleeding can happen without warning symptoms and can cause . To reduce your risk, do not smoke cigarettes or drink alcohol while you are taking this medicine. You may get drowsy or dizzy. Do not drive, use machinery, or do anything that needs mental alertness until you know how this medicine affects you. Do not stand or sit up quickly, especially if you are an older patient. This reduces the risk of dizzy or fainting spells. This medicine can cause you to bleed more easily. Try to avoid damage to your teeth and gums when you brush or floss your teeth. Clotrimazole Topical solution What is this medicine? CLOTRIMAZOLE (kloe TRIM a zole) is an antifungal medicine. It is used to treat certain kinds of fungal or yeast infections of the skin. How should I use this medicine? This medicine is for external use only. Do not take by mouth. Follow the directions on the prescription label. Wash your hands before and after use. If treating a hand or nail infection, wash hands before use only. Apply a thin layer to the affected area and a small amount to the surrounding area. Rub in gently. Do not get this medicine in your eyes. If you do, rinse out with plenty of cool tap water. Use this medicine at regular intervals. Do not use more often than directed. Finish the full course prescribed by your doctor or health home health care respiratory therapist even if you think you are better. Do not stop using except on your doctor's advice. Talk to your cloth boil off machine operator regarding the use of this medicine in children. While this drug has been used in young children for selected conditions, precautions do apply. What side effects may I notice from receiving this medicine? Side effects that usually do not require medical attention (report to your doctor or health home health care respiratory therapist if they continue or are bothersome): allergic reactions like skin rash, itching or hives, swelling of the face, lips, or tongue skin irritation, burning What may interact with this medicine? amphotericin b topical products that have nystatin What if I miss a dose? If you miss a dose, use it as soon as you can. If it is almost time for your next dose, use only that dose. Do not use double or extra doses. Where should I keep my medicine? Keep out of the reach of children. Store at room temperature between 2 to 30 degrees C (36 to 86 degrees F). Do not freeze. Throw away any unused medicine after the expiration date. What should I tell my health care provider before I take this medicine? They need to know if you have any of these conditions: an unusual or allergic reaction to clotrimazole, other antifungals or medicines, foods, dyes or preservatives or trying to get breast-feeding What should I watch for while using this medicine? Tell your doctor or health home health care respiratory therapist if your symptoms do not start to improve after 7 days. Do not self-medicate for more than one week. If you are using this medicine for 'jock itch' be sure to dry the groin completely after bathing. Do not wear underwear that is tight-fitting or made from synthetic fibers like avtar or nylon. Wear loose-fitting, cotton underwear. If you are using this medicine for athlete's foot be sure to dry your feet carefully after bathing, especially between the toes. Do not wear socks made from wool or synthetic materials like avtar or nylon. Wear clean cotton socks and change them at least once a day, change them more if your feet sweat a lot. Also, try to wear sandals or shoes that are well-ventilated. You have been given the following additional information: Bladder Infection, Female (Adult) Fungal Infection, Skin [General] Sulfamethoxazole, Trimethoprim Oral tablet Acetaminophen Oral tablet Ibuprofen Oral tablet Clotrimazole Topical solution (Electronically signed by Hector Reyes DO 01/06/2017 20:58)
--- NOTE | 2017-01-06 20:58 | ED MED RECONCILIATION SUMMARY ---
Patient: TED LEE Medication Reconciliation Report [facility] VisitID: [id number] [address] [place] [address] 56y, F Registration Date/Time: 01/06/2017 Weight: 72.5 kg Height/Length: 64 in. BMI: 27.5 ALLERGIES: None The patient's Home Medications are listed below: NONE. The source(s) of the original Home Medication information: Not obtained. The following Medications were given to the patient in the Emergency Department: Bactrim DS [PO] PO 1 tab, administered: 01/06/2017 7:46:00 PM The following Medications were prescribed to the patient: Acetaminophen (available over the counter): take according to label instructions. -- Hector Reyes DO Motrin (available over the counter): take according to label instructions. -- Hector Reyes DO Bactrim DS 800 mg / 160 mg: Take 1 tablet orally every 12 hours for 7 days. Dispense fourteen (14). No refills. Substitution is permissible. -- Hector Reyes DO Clotrimazole 1% Cream (available over the counter): apply to affected area three times daily for 3 weeks, as needed for rash, until symptoms resolve. Dispense ninety (90) grams. No refills. -- Hector Reyes DO
== END 2017-01-06 19:57 | disposition home or self-care (01) ==
LOC: ED SRH 18:11
DX: N30.00 Acute cystitis without hematuria (principal); L30.4 Erythema intertrigo; M79.672 Pain in left foot; M79.671 Pain in right foot; E11.9 Type 2 diabetes mellitus without complications; I10 Essential (primary) hypertension
CPT/HCPCS: 90004; 90098; 90469; 90627; 92760; 92761; 92762; 92763; 92764; 92765; 92766; 92767; 93070

== ENCOUNTER 2017-03-01 13:05 | Emergency (ER) | payer OTHER ==
--- NOTE | 2017-03-01 15:57 | ED CLINICAL REPORT ---
Clinical Report - Physicians/Mid Levels [facility] [address], [place] [address] 03/01/2017 13:07 Patient: TED LEE Time Seen: 15:52. HISTORY OF PRESENT ILLNESS Chief Complaint: Injury to the right foot. The injury happened 6 weeks ago. (no injury). Patient is experiencing moderate pain. No other injury. REVIEW OF SYSTEMS The patient complains of pain on weight bearing. No swelling, tingling, weakness, numbness or suspected foreign body. No skin laceration. PAST HISTORY See nurses notes. NATHALIE for multiple visits. Surgeries: Mastectomy. Medications: None. Allergies: None. SOCIAL HISTORY Former smoker. No alcohol use or drug use. ADDITIONAL NOTES The nursing notes have been reviewed. PHYSICAL EXAM Vital Signs: 03/01/2017 14:00 BP: 165/74. HR: 81. RR: 17. O2 saturation: 98%. Temp: 98.2 F. Pain level now: 10. Have been reviewed and appear to be correct. Appearance: Alert. Oriented X3. No acute distress. Head: Head atraumatic. Neck: Normal inspection. Neck supple. CVS: Normal heart rate and rhythm. Respiratory: No respiratory distress. Skin: Skin intact. Skin warm and dry. Extremities: Foot/ankle soft-tissue tenderness (metatarsals R>L). Right foot, plantar aspect: mild tenderness. Neurovascular intact distally. No erythema, swelling, laceration, abrasion or ecchymosis. No puncture wound, foreign body or deformity. No signs of infection present in the feet or ankles. No foot injury. No ankle injury. Extremities otherwise negative. Gait: Normal gait. Neuro, Vascular and Tendons: Vascular status intact. Sensation intact. Motor intact. Tendon function intact. Neuro: Oriented X 3. PROGRESS AND PROCEDURES Course of Care: patient encouraged to utilize primary care for management No injury-no indication for xray at this time. Patient is stable. Patient counseled in person regarding the patient's stable condition, normal exam and need for follow-up. Disposition: Discharged. Condition: stable. CLINICAL IMPRESSION Right and left plantar fasciitis (Metatarsalgia). INSTRUCTIONS (Discuss foot doctor referral with your PCP. Massage your feet Ice can help: 10min at a time, 2-3 times per day). Warnings: GENERAL WARNINGS: Return or contact your physician immediately if your condition worsens or changes unexpectedly, if not improving as expected, or if other problems arise. Prescription Medications: Mobic 15 mg: take 1 tablet orally every day for 10 days. No refills. Voltaren gel-apply 2g BID to affected area, #100g. Follow-up: Follow up with your doctor even if well. Call for the next available appointment. Understanding of the discharge instructions verbalized by patient. (Electronically signed by Susanna Tan A.R.N.P. 03/01/2017 17:31)
--- NOTE | 2017-03-01 15:57 | ED NURSING NOTES ---
Clinical Report - Nurses [facility] [address] [place] [address] 03/01/2017 13:07 Patient: TED LEE TRIAGE Triage time 14:00 Mar 01 2017. Acuity: LEVEL 5. Chief Complaint: RIGHT LOWER EXTREMITY PAIN. Location of symptoms- right foot (pt c/o bilat foot pain for "a month, I was wondering if you had any cream for it" no trauma or visible injury upon inspection of bottom of both feet.). LEFT LOWER EXTREMITY PAIN. Location of symptoms- left foot. Alert. No acute distress. SEPSIS SCREEN: Sepsis Screen. Negative (no infection suspected/documented). SUSY COMA SCORE: [place] Coma Scale: 15- eyes open spontaneously (4); best verbal response- oriented x 4 (5); best motor response- obeys commands (6). --14:05 Kellie Aranda R.N. 14:00 03/01/17. BP: 165/74. HR: 81. RR: 17. O2 saturation: 98%. Temp: 98.2 F. Pain level now: 03/18. --14:05 Kellie Aranda R.N. 14:52 no response when called. --14:53 Norma Oseguera R.N. Weight: 58.9 kg stated. Height/Length: 65 inches Per Patient. BMI: 21.6. --14:01 Kellie Aranda R.N. Medications None. --14:03 Kellie Aranda R.N. Allergies None. --14:03 Kellie Aranda R.N. History Arrived by private vehicle. Historian: patient. No injury occurred. This occurred (a month). 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 PAST MEDICAL HX: Tetanus status: unknown. Immunizations: status is unknown. The patient is post-menopausal. SOCIAL HX: Former smoker. No alcohol use or drug use. No infectious disease exposure. ABUSE ASSESSMENT: No report of abuse. SELF HARM ASSESSMENT: A self harm assessment was performed. The patient answered "no" to the question "Do you have thoughts of harming or killing yourself?". FALL RISK ASSESSMENT: Fall risk assessment completed. No fall risk identified. NUTRITIONAL RISK ASSESSMENT: The nutritional risk assessment revealed no deficiencies. FUNCTIONAL ASSESSMENT: Functional assessment: no impairments noted. LEARNING NEEDS ASSESSMENT: The learning needs assessment revealed no barriers. SKIN INTEGRITY ASSESSMENT: Skin integrity risk assessment completed. No skin integrity risk identified. --14:05 Kellie Aranda R.N. PROBLEMS: UTI - Urinary Tract Infection. Intertrigo. Schizophrenia. Cancer. Atopic Dermatitis. Gastritis. Breast Cancer. Mental Illness. Athlete's Foot. Costochondritis. Diabetes Mellitus. Dyslexia. Hypertension. --14:04 Kellie Aranda R.N. ADDITIONAL SURGERIES: Mastectomy. --14:04 Kellie Aranda R.N. Interventions ID band on patient. --14:05 Kellie Aranda R.N. PHYSICAL ASSESSMENT Ambulatory to room. GENERAL / NEURO / PSYCH: Oriented X 4. Alert. Appears in no acute distress. EXTREMITIES: Extremity pulses are within normal limits. Extremities exhibit normal ROM. Neuro-vascular status intact to the extremity. No lower extremity edema. Normal gait. Right foot: (co pain to bottom of foot, no obvious signs of trauma or injury). Left foot: (co pain to bottom of foot, no obvious signs of trauma or injury). SKIN: Skin intact. Skin is warm and dry. --15:23 Kellie Aranda R.N. NURSING PROGRESS NOTES Patient identifiers checked. Call light placed in reach. Side rails up x 1. Bed placed in lowest position. Brakes of bed on. Patient ready for evaluation- chart flagged. Patient waiting for evaluation. --15:24 Kellie Aranda R.N. DISPOSITION / DISCHARGE 16:03 03/01/17. Condition at departure: improved. The goals identified in the patient's plan of care were met. No learning barriers present. Discharge instructions provided and reviewed with the patient. Reviewed warnings. Reviewed medication(s). Treatments reviewed. Patient verbalized understanding. Written instructions provided in Belarusian. The patient was discharged by the nurse practitioner. She was discharged home and accompanied by family. She left the Emergency Department ambulatory and via private vehicle. Family member driving. FALL RISK ASSESSMENT: Fall risk assessment completed. No fall risk identified. --16:03 Benjamin Viera R.N. 16:02 03/01/17. BP: 154/72. HR: 81. RR: 14. O2 saturation: 98% on room air. Temp: 98.1 F (oral). --16:03 Benjamin Viera R.N. 16:03 03/01/17. Departure time: 16:Mar 01 2017. --16:03 Benjamin Viera R.N. Locked/Released at 03/01/2017 16:04 by Benjamin Viera R.N.
--- NOTE | 2017-03-01 15:57 | ED NURSING NOTES ---
Clinical Report - Nurses [facility] [address] [place] [address] 03/01/2017 13:07 Patient: TED LEE TRIAGE Triage time 14:00 Mar 01 2017. Acuity: LEVEL 5. Chief Complaint: RIGHT LOWER EXTREMITY PAIN. Location of symptoms- right foot (pt c/o bilat foot pain for "a month, I was wondering if you had any cream for it" no trauma or visible injury upon inspection of bottom of both feet.). LEFT LOWER EXTREMITY PAIN. Location of symptoms- left foot. Alert. No acute distress. SEPSIS SCREEN: Sepsis Screen. Negative (no infection suspected/documented). SUSY COMA SCORE: [place] Coma Scale: 15- eyes open spontaneously (4); best verbal response- oriented x 4 (5); best motor response- obeys commands (6). --14:05 Kellie Aranda R.N. 14:00 03/01/17. BP: 165/74. HR: 81. RR: 17. O2 saturation: 98%. Temp: 98.2 F. Pain level now: 03/18. --14:05 Kellie Aranda R.N. 14:52 no response when called. --14:53 Noram Oseguera R.N. Weight: 58.9 kg stated. Height/Length: 65 inches Per Patient. BMI: 21.6. --14:01 Kellie Aranda R.N. Medications None. --14:03 Kellie Aranda R.N. Allergies None. --14:03 Kellie Aranda R.N. History Arrived by private vehicle. Historian: patient. No injury occurred. This occurred (a month). 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 PAST MEDICAL HX: Tetanus status: unknown. Immunizations: status is unknown. The patient is post-menopausal. SOCIAL HX: Former smoker. No alcohol use or drug use. No infectious disease exposure. ABUSE ASSESSMENT: No report of abuse. SELF HARM ASSESSMENT: A self harm assessment was performed. The patient answered "no" to the question "Do you have thoughts of harming or killing yourself?". FALL RISK ASSESSMENT: Fall risk assessment completed. No fall risk identified. NUTRITIONAL RISK ASSESSMENT: The nutritional risk assessment revealed no deficiencies. FUNCTIONAL ASSESSMENT: Functional assessment: no impairments noted. LEARNING NEEDS ASSESSMENT: The learning needs assessment revealed no barriers. SKIN INTEGRITY ASSESSMENT: Skin integrity risk assessment completed. No skin integrity risk identified. --14:05 Kellie Aranda R.N. PROBLEMS: UTI - Urinary Tract Infection. Intertrigo. Schizophrenia. Cancer. Atopic Dermatitis. Gastritis. Breast Cancer. Mental Illness. Athlete's Foot. Costochondritis. Diabetes Mellitus. Dyslexia. Hypertension. --14:04 Kellie Aranda R.N. ADDITIONAL SURGERIES: Mastectomy. --14:04 Kellie Aranda R.N. Interventions ID band on patient. --14:05 Kellie Aranda R.N. PHYSICAL ASSESSMENT Ambulatory to room. GENERAL / NEURO / PSYCH: Oriented X 4. Alert. Appears in no acute distress. EXTREMITIES: Extremity pulses are within normal limits. Extremities exhibit normal ROM. Neuro-vascular status intact to the extremity. No lower extremity edema. Normal gait. Right foot: (co pain to bottom of foot, no obvious signs of trauma or injury). Left foot: (co pain to bottom of foot, no obvious signs of trauma or injury). SKIN: Skin intact. Skin is warm and dry. --15:23 Kellie Aranda R.N. NURSING PROGRESS NOTES Patient identifiers checked. Call light placed in reach. Side rails up x 1. Bed placed in lowest position. Brakes of bed on. Patient ready for evaluation- chart flagged. Patient waiting for evaluation. --15:24 Kellie Aranda R.N. DISPOSITION / DISCHARGE 16:03 03/01/17. Condition at departure: improved. The goals identified in the patient's plan of care were met. No learning barriers present. Discharge instructions provided and reviewed with the patient. Reviewed warnings. Reviewed medication(s). Treatments reviewed. Patient verbalized understanding. Written instructions provided in Indonesian. The patient was discharged by the nurse practitioner. She was discharged home and accompanied by family. She left the Emergency Department ambulatory and via private vehicle. Family member driving. FALL RISK ASSESSMENT: Fall risk assessment completed. No fall risk identified. --16:03 Benjamin Viera R.N. 16:02 03/01/17. BP: 154/72. HR: 81. RR: 14. O2 saturation: 98% on room air. Temp: 98.1 F (oral). --16:03 Benjamin Viera R.N. 16:03 03/01/17. Departure time: 16:Mar 01 2017. --16:03 Benjamin Viera R.N. Locked/Released at 03/01/2017 16:04 by Benjamin Viera R.N.
--- NOTE | 2017-03-01 15:57 | ED CLINICAL REPORT ---
Clinical Report - Physicians/Mid Levels [facility] [address], [place] [address] 03/01/2017 13:07 Patient: TED LEE Time Seen: 15:52. HISTORY OF PRESENT ILLNESS Chief Complaint: Injury to the right foot. The injury happened 6 weeks ago. (no injury). Patient is experiencing moderate pain. No other injury. REVIEW OF SYSTEMS The patient complains of pain on weight bearing. No swelling, tingling, weakness, numbness or suspected foreign body. No skin laceration. PAST HISTORY See nurses notes. NATHALIE for multiple visits. Surgeries: Mastectomy. Medications: None. Allergies: None. SOCIAL HISTORY Former smoker. No alcohol use or drug use. ADDITIONAL NOTES The nursing notes have been reviewed. PHYSICAL EXAM Vital Signs: 03/01/2017 14:00 BP: 165/74. HR: 81. RR: 17. O2 saturation: 98%. Temp: 98.2 F. Pain level now: 10. Have been reviewed and appear to be correct. Appearance: Alert. Oriented X3. No acute distress. Head: Head atraumatic. Neck: Normal inspection. Neck supple. CVS: Normal heart rate and rhythm. Respiratory: No respiratory distress. Skin: Skin intact. Skin warm and dry. Extremities: Foot/ankle soft-tissue tenderness (metatarsals R>L). Right foot, plantar aspect: mild tenderness. Neurovascular intact distally. No erythema, swelling, laceration, abrasion or ecchymosis. No puncture wound, foreign body or deformity. No signs of infection present in the feet or ankles. No foot injury. No ankle injury. Extremities otherwise negative. Gait: Normal gait. Neuro, Vascular and Tendons: Vascular status intact. Sensation intact. Motor intact. Tendon function intact. Neuro: Oriented X 3. PROGRESS AND PROCEDURES Course of Care: patient encouraged to utilize primary care for management No injury-no indication for xray at this time. Patient is stable. Patient counseled in person regarding the patient's stable condition, normal exam and need for follow-up. Disposition: Discharged. Condition: stable. CLINICAL IMPRESSION Right and left plantar fasciitis (Metatarsalgia). INSTRUCTIONS (Discuss foot doctor referral with your PCP. Massage your feet Ice can help: 10min at a time, 2-3 times per day). Warnings: GENERAL WARNINGS: Return or contact your physician immediately if your condition worsens or changes unexpectedly, if not improving as expected, or if other problems arise. Prescription Medications: Mobic 15 mg: take 1 tablet orally every day for 10 days. No refills. Voltaren gel-apply 2g BID to affected area, #100g. Follow-up: Follow up with your doctor even if well. Call for the next available appointment. Understanding of the discharge instructions verbalized by patient. (Electronically signed by Susanna Tan A.R.N.P. 03/01/2017 17:31)
--- NOTE | 2017-03-01 17:31 | ED MAR SUMMARY ---
..... Medication Administration Record [facility] [address], [place] [id number] Patient: TED LEE Visit ID: [id number] 56y, F Weight: 58.9 kg Height/Length: 65 in BMI: 21.6 ALLERGIES: None
--- NOTE | 2017-03-01 17:31 | ED MAR SUMMARY ---
..... Medication Administration Record [facility] [address] [place], [place] [id number] Patient: TED LEE Visit ID: [id number] 56y, F Weight: 58.9 kg Height/Length: 65 in BMI: 21.6 ALLERGIES: None
--- NOTE | 2017-03-01 17:31 | ED MED RECONCILIATION SUMMARY ---
Patient: TED LEE Medication Reconciliation Report [facility] VisitID: [id number] [address] [place] [address] 56y, F Registration Date/Time: 03/01/2017 Weight: 58.9 kg Height/Length: 65 in. BMI: 21.6 ALLERGIES: None The patient's Home Medications are listed below: NONE. The source(s) of the original Home Medication information: Not obtained. The following Medications were given to the patient in the Emergency Department: None. The following Medications were prescribed to the patient: Mobic 15 mg: take 1 tablet orally every day for 10 days. No refills. -- Susanna Tan A.R.N.P. Voltaren gel-apply 2g BID to affected area, #100g. -- Susanna Tan A.R.N.P.
--- NOTE | 2017-03-01 17:31 | ED DISCHARGE INSTRUCTIONS ---
Patient: TED LEE General Instructions [facility] VisitID: [id number] [place] [address] 56y, F Registration Date/Time: 03/01/2017 Right and left plantar fasciitis (Metatarsalgia). INSTRUCTIONS (Discuss foot doctor referral with your PCP. Massage your feet Ice can help: 10min at a time, 2-3 times per day). Warnings: GENERAL WARNINGS: Return or contact your physician immediately if your condition worsens or changes unexpectedly, if not improving as expected, or if other problems arise. Prescription Medications: Mobic 15 mg: take 1 tablet orally every day for 10 days. No refills. Voltaren gel-apply 2g BID to affected area, #100g. Follow-up: Follow up with your doctor even if well. Call for the next available appointment. Understanding of the discharge instructions verbalized by patient. ADDITIONAL INFORMATION Plantar Fasciitis The plantar fascia is a thick fibrous layer of tissue that covers the bones on the bottom of your foot. It supports the foot bones in an arched position. can develop gradually or suddenly. It usually affects one foot at a time. Heel pain can be sharp and feel like a knife sticking in the bottom of your foot. Pain may occur after exercising, long distance jogging, stair climbing, long periods of standing, or after getting up from a seated position. Risk factors include arthritis, diabetes, obesity or recent weight gain, flat-foot, high arch, wearing high heels or loose shoes or shoes with a poor arch support. Foot pain from this condition is usually worse in the morning and improves with walking. By the end of the day there may be a dull aching. Treatment requires short-term rest and controlling inflammation. It may take up to nine months before all symptoms go away with the measures described below. Rarely, a steroid injection into the foot or surgery may be needed. Home Care If you are overweight, lose weight to promote healing. Choose supportive shoes with good arch support and shock absorbency. Replace athletic shoes when they become worn out. Dont walk or run barefoot. Shoe inserts are an important part of treatment. These will provide optimal arch support. While you can buy [id number] shoe inserts inexpensively, the best ones are those made for you by a salvation army officer (presentation specialist). Night splints (provided by a salvation army officer) keep the heel stretched out while you sleep and prevent morning pain. Avoid activities that stress the feet: jogging, prolonged standing or walking, contact sports, etc. First thing in the morning and before sports, stretch the bottom of your feet. Gently flex your ankle so the foot moves toward your knee. Icing may help control heel pain. Apply an ice pack (ice cubes in a plastic bag, wrapped in a towel) to the heel for 10-20 minutes as a preventive or after an acute flare of symptoms. You may repeat this every 1-2 hours as needed. You may use acetaminophen (Tylenol) or ibuprofen (Motrin, Advil) to control pain, unless another medicine was prescribed. [NOTE: If you have chronic liver or kidney disease or ever had a stomach ulcer or GI bleeding, talk with your doctor before using these medicines.] Follow Up with your doctor or a salvation army officer (presentation specialist) as advised by our staff. Call for an appointment if pain worsens or there is no relief after a few weeks of home treatment. Shoe inserts, a night splint or a special boot may be required. [NOTE: If x-rays were taken, they will be reviewed by a radiologist. You will be notified of any new findings that may affect your care.] Return Promptly or contact your physician if any of the following occurs: Foot swelling or redness with increasing pain You have been given the following additional information: Plantar Fasciitis (Electronically signed by Susanna Tan A.R.N.P. 03/01/2017 17:31)
--- NOTE | 2017-03-01 17:31 | ED DISCHARGE INSTRUCTIONS ---
Patient: TED LEE General Instructions [facility] VisitID: [id number] [place] [address] 56y, F Registration Date/Time: 03/01/2017 Right and left plantar fasciitis (Metatarsalgia). INSTRUCTIONS (Discuss foot doctor referral with your PCP. Massage your feet Ice can help: 10min at a time, 2-3 times per day). Warnings: GENERAL WARNINGS: Return or contact your physician immediately if your condition worsens or changes unexpectedly, if not improving as expected, or if other problems arise. Prescription Medications: Mobic 15 mg: take 1 tablet orally every day for 10 days. No refills. Voltaren gel-apply 2g BID to affected area, #100g. Follow-up: Follow up with your doctor even if well. Call for the next available appointment. Understanding of the discharge instructions verbalized by patient. ADDITIONAL INFORMATION Plantar Fasciitis The plantar fascia is a thick fibrous layer of tissue that covers the bones on the bottom of your foot. It supports the foot bones in an arched position. can develop gradually or suddenly. It usually affects one foot at a time. Heel pain can be sharp and feel like a knife sticking in the bottom of your foot. Pain may occur after exercising, long distance jogging, stair climbing, long periods of standing, or after getting up from a seated position. Risk factors include arthritis, diabetes, obesity or recent weight gain, flat-foot, high arch, wearing high heels or loose shoes or shoes with a poor arch support. Foot pain from this condition is usually worse in the morning and improves with walking. By the end of the day there may be a dull aching. Treatment requires short-term rest and controlling inflammation. It may take up to nine months before all symptoms go away with the measures described below. Rarely, a steroid injection into the foot or surgery may be needed. Home Care If you are overweight, lose weight to promote healing. Choose supportive shoes with good arch support and shock absorbency. Replace athletic shoes when they become worn out. Dont walk or run barefoot. Shoe inserts are an important part of treatment. These will provide optimal arch support. While you can buy [id number] shoe inserts inexpensively, the best ones are those made for you by a food and nutrition services supervisor (resource conservation specialist). Night splints (provided by a food and nutrition services supervisor) keep the heel stretched out while you sleep and prevent morning pain. Avoid activities that stress the feet: jogging, prolonged standing or walking, contact sports, etc. First thing in the morning and before sports, stretch the bottom of your feet. Gently flex your ankle so the foot moves toward your knee. Icing may help control heel pain. Apply an ice pack (ice cubes in a plastic bag, wrapped in a towel) to the heel for 10-20 minutes as a preventive or after an acute flare of symptoms. You may repeat this every 1-2 hours as needed. You may use acetaminophen (Tylenol) or ibuprofen (Motrin, Advil) to control pain, unless another medicine was prescribed. [NOTE: If you have chronic liver or kidney disease or ever had a stomach ulcer or GI bleeding, talk with your doctor before using these medicines.] Follow Up with your doctor or a food and nutrition services supervisor (resource conservation specialist) as advised by our staff. Call for an appointment if pain worsens or there is no relief after a few weeks of home treatment. Shoe inserts, a night splint or a special boot may be required. [NOTE: If x-rays were taken, they will be reviewed by a radiologist. You will be notified of any new findings that may affect your care.] Return Promptly or contact your physician if any of the following occurs: Foot swelling or redness with increasing pain You have been given the following additional information: Plantar Fasciitis (Electronically signed by Susanna Tan A.R.N.P. 03/01/2017 17:31)
--- NOTE | 2017-03-01 17:31 | ED MED RECONCILIATION SUMMARY ---
Patient: TED LEE Medication Reconciliation Report [facility] VisitID: [id number] [address] [place] [address] 56y, F Registration Date/Time: 03/01/2017 Weight: 58.9 kg Height/Length: 65 in. BMI: 21.6 ALLERGIES: None The patient's Home Medications are listed below: NONE. The source(s) of the original Home Medication information: Not obtained. The following Medications were given to the patient in the Emergency Department: None. The following Medications were prescribed to the patient: Mobic 15 mg: take 1 tablet orally every day for 10 days. No refills. -- Susanna Tan A.R.N.P. Voltaren gel-apply 2g BID to affected area, #100g. -- Susanna Tan A.R.N.P.
== END 2017-03-01 16:03 | disposition home or self-care (01) ==
LOC: ED SRH 13:05
DX: M72.2 Plantar fascial fibromatosis (principal); X58.XXXA Exposure to other specified factors, initial encounter; Z87.891 Personal history of nicotine dependence

== ENCOUNTER 2017-03-28 15:47 | Emergency (ER) | payer OTHER ==
--- NOTE | 2017-03-28 20:56 | ED NURSING NOTES ---
Clinical Report - Nurses [facility] [address] [place] [address] 03/28/2017 15:47 Patient: TED ELE TRIAGE Triage time 15:57 Valerio 2016. Acuity: LEVEL 5. Chief Complaint: REDNESS TO RIGHT EYE. SWELLING TO RIGHT EYELID. (pt was seen at [facility] "3 hours ago, I want to make sure they prescribed the right thing"). Alert. No acute distress. SEPSIS SCREEN: Sepsis Screen: negative. Infection suspected/documented. --16:02 Kellie Aranda R.N. 15:57 03/28/17. BP: 141/83. HR: 91. RR: 15. O2 saturation: 100%. Temp: 97.6 F. Pain level now: 0/10. --16:02 Kellie Aranda R.N. Weight: 52.1 kg stated. Height/Length: 64 inches Per Patient. BMI: 19.7. --16:00 Kellie Aranda R.N. Medications Erythromycin Ophthalmic. --15:59 Kellie Aranda R.N. Medication/allergy information source: the patient. --16:02 Kellie Aranda R.N. Allergies None. --15:59 Kellie Aranda R.N. History Arrived by private vehicle. Historian: patient. 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 PAST MEDICAL HX: Immunizations: up-to-date. SOCIAL HX: Never smoker. No alcohol use or drug use. No infectious disease exposure. ABUSE ASSESSMENT: No report of abuse. SELF HARM ASSESSMENT: A self harm assessment was performed. The patient answered "no" to the question "Do you have thoughts of harming or killing yourself?". FALL RISK ASSESSMENT: Fall risk assessment completed. No fall risk identified. NUTRITIONAL RISK ASSESSMENT: The nutritional risk assessment revealed no deficiencies. FUNCTIONAL ASSESSMENT: Functional assessment: no impairments noted. LEARNING NEEDS ASSESSMENT: The learning needs assessment revealed no barriers. SKIN INTEGRITY ASSESSMENT: Skin integrity risk assessment completed. No skin integrity risk identified. --16:02 Kellie Aranda R.N. PROBLEMS: Plantar Fasciitis. UTI - Urinary Tract Infection. Intertrigo. Schizophrenia. Cancer. Atopic Dermatitis. Gastritis. Breast Cancer. Mental Illness. Athlete's Foot. Skin Rash. Abdominal Pain. Costochondritis. Immunizations. LNMP - Last Normal Menstrual Period. Diabetes Mellitus. Dyslexia. Hypertension. --16:00 Kellie Aranda R.N. ADDITIONAL SURGERIES: Mastectomy. --16:00 Kellie Aranda R.N. Interventions ID band on patient. --16:02 Kellie Aranda R.N. PHYSICAL ASSESSMENT Ambulatory to room. GENERAL / NEURO / PSYCH: Alert. Appears in no acute distress. HEENT: Pupils equal, round and reactive to light. Mouth inspection within normal limits. RESPIRATORY: Respirations not labored. CVS: Capillary refill less than 2 seconds. SKIN: Skin is warm and dry. Normal skin turgor. --16:03 Kellie Aranda R.N. NURSING PROGRESS NOTES Reassurance given. Call light placed in reach. Patient placed in chair. Brakes of chair on. Patient ready for evaluation- chart flagged. Patient waiting for evaluation. --16:03 Kellie Aranda R.N. DISPOSITION / DISCHARGE The patient left the Emergency Department without being seen by a physician; patient was unaccompanied. The patient appears to be alert, oriented x4, coherent and in no acute distress. Unable to locate patient. Notified the ED physician and charge nurse of patient departure. ( pt told a staff member she was going out to get her mocha she left in the lobby, pt never returned, lobby checked, all of her belongings gone from the room). --17:05 Kellie Aranda R.N. Locked/Released at 03/28/2017 20:56 by Kellie Aranda R.N.
--- NOTE | 2017-03-28 20:56 | ED MED RECONCILIATION SUMMARY ---
Patient: TED LEE Medication Reconciliation Report [facility] VisitID: [id number] [address] [place] [address] 56y, F Registration Date/Time: 03/28/2017 Weight: 52.1 kg Height/Length: 64 in. BMI: 19.7 ALLERGIES: None The patient's Home Medications are listed below: THE FOLLOWING MEDICATIONS NEED TO BE RECONCILED: Erythromycin Ophthalmic The source(s) of the original Home Medication information: patient The following Medications were given to the patient in the Emergency Department: None. The following Medications were prescribed to the patient: None.
--- NOTE | 2017-03-28 20:56 | ED MED RECONCILIATION SUMMARY ---
Patient: TED LEE Medication Reconciliation Report [facility] VisitID: [id number] [address] [place] [address] 56y, F Registration Date/Time: 03/28/2017 Weight: 52.1 kg Height/Length: 64 in. BMI: 19.7 ALLERGIES: None The patient's Home Medications are listed below: THE FOLLOWING MEDICATIONS NEED TO BE RECONCILED: Erythromycin Ophthalmic The source(s) of the original Home Medication information: patient The following Medications were given to the patient in the Emergency Department: None. The following Medications were prescribed to the patient: None.
--- NOTE | 2017-03-28 20:56 | ED MAR SUMMARY ---
..... Medication Administration Record [facility] [address] [place] [id number] Patient: TED LEE Visit ID: [id number] 56y, F Weight: 52.1 kg Height/Length: 64 in BMI: 19.7 ALLERGIES: None
--- NOTE | 2017-03-28 20:56 | ED MAR SUMMARY ---
..... Medication Administration Record [facility] [address] [place], [place] [id number] Patient: TED LEE Visit ID: [id number] 56y, F Weight: 52.1 kg Height/Length: 64 in BMI: 19.7 ALLERGIES: None
--- NOTE | 2017-03-28 20:56 | ED NURSING NOTES ---
Clinical Report - Nurses [facility] [address] [place] [place] [address] 03/28/2017 15:47 Patient: TED LEE TRIAGE Triage time 15:57 Valerio 2016. Acuity: LEVEL 5. Chief Complaint: REDNESS TO RIGHT EYE. SWELLING TO RIGHT EYELID. ([facility] "[facility], I want to make sure they prescribed the right thing"). Alert. No acute distress. SEPSIS SCREEN: Sepsis Screen: negative. Infection suspected/documented. --16:02 Kellie Aranda R.N. 15:57 03/28/17. BP: 141/83. HR: 91. RR: 15. O2 saturation: 100%. Temp: 97.6 F. Pain level now: 0/10. --16:02 Kellie Aranda R.N. Weight: 52.1 kg stated. Height/Length: 64 inches Per Patient. BMI: 19.7. --16:00 Kellie Aranda R.N. Medications Erythromycin Ophthalmic. --15:59 Kellie Aranda R.N. Medication/allergy information source: the patient. --16:02 Kellie Aranda R.N. Allergies None. --15:59 Kellie Aranda R.N. History Arrived by private vehicle. Historian: patient. 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 PAST MEDICAL HX: Immunizations: up-to-date. SOCIAL HX: Never smoker. No alcohol use or drug use. No infectious disease exposure. ABUSE ASSESSMENT: No report of abuse. SELF HARM ASSESSMENT: A self harm assessment was performed. The patient answered "no" to the question "Do you have thoughts of harming or killing yourself?". FALL RISK ASSESSMENT: Fall risk assessment completed. No fall risk identified. NUTRITIONAL RISK ASSESSMENT: The nutritional risk assessment revealed no deficiencies. FUNCTIONAL ASSESSMENT: Functional assessment: no impairments noted. LEARNING NEEDS ASSESSMENT: The learning needs assessment revealed no barriers. SKIN INTEGRITY ASSESSMENT: Skin integrity risk assessment completed. No skin integrity risk identified. --16:02 Kellie Aranda R.N. PROBLEMS: Plantar Fasciitis. UTI - Urinary Tract Infection. Intertrigo. Schizophrenia. Cancer. Atopic Dermatitis. Gastritis. Breast Cancer. Mental Illness. Athlete's Foot. Skin Rash. Abdominal Pain. Costochondritis. Immunizations. LNMP - Last Normal Menstrual Period. Diabetes Mellitus. Dyslexia. Hypertension. --16:00 Kellie Aranda R.N. ADDITIONAL SURGERIES: Mastectomy. --16:00 Kellie Aranda R.N. Interventions ID band on patient. --16:02 Kellie Aranda R.N. PHYSICAL ASSESSMENT Ambulatory to room. GENERAL / NEURO / PSYCH: Alert. Appears in no acute distress. HEENT: Pupils equal, round and reactive to light. Mouth inspection within normal limits. RESPIRATORY: Respirations not labored. CVS: Capillary refill less than 2 seconds. SKIN: Skin is warm and dry. Normal skin turgor. --16:03 Kellie Aranda R.N. NURSING PROGRESS NOTES Reassurance given. Call light placed in reach. Patient placed in chair. Brakes of chair on. Patient ready for evaluation- chart flagged. Patient waiting for evaluation. --16:03 Kellie Aranda R.N. DISPOSITION / DISCHARGE The patient left the Emergency Department without being seen by a physician; patient was unaccompanied. The patient appears to be alert, oriented x4, coherent and in no acute distress. Unable to locate patient. Notified the ED physician and charge nurse of patient departure. ( pt told a staff member she was going out to get her mocha she left in the lobby, pt never returned, lobby checked, all of her belongings gone from the room). --17:05 Kellie Aranda R.N. Locked/Released at 03/28/2017 20:56 by Kellie Aranda R.N.
== END 2017-03-28 17:05 | disposition left against medical advice (07) ==
LOC: ED SRH 15:47
DX: Z53.21 Procedure and treatment not carried out due to patient leaving prior to being seen by health care provider (principal)